=== PATIENT | female | born 1965 | race Hispanic/Latino ===

== ENCOUNTER 2017-07-26 06:59 | Day surgery (SDC) | payer MEDICARE, BC ==
[2017-07-25 13:38] VITALS: BMI 21.7
[2017-07-26 07:56] VITALS: BP 104/68; TEMP 98
[2017-07-26] MEDS ORDERED: FLU VACC QS2017-18 36 mo. & older 0.5 ML SYRINGE IM ONE (09:00)
--- NOTE | 2017-07-26 09:12 | SPC ---
LEFT UPPER EXTREMITY DIALYSIS FISTULOGRAM: Date: 07/26/17 HISTORY: Left arm pain. Patient with history of dialysis fistula. DOSE: 1 minute of fluoroscopy and DAP of 5.4 Gy*cm^2. TECHNIQUE/FINDINGS: The left upper extremity fistula was localized. The overlying skin was prepped and draped in the usua l sterile manner. A 1% lidocaine solution was used to anesthetize the overlying soft tissues. A small dermatotomy was made. The left upper extremity fistula was accessed using a micropuncture set. Left upper extremity fistulogram was performed. The arterial anastomosis is patent with contrast passing from the left radial artery into the left up per extremity fistula without difficulty. The draining portion of the fistula is patent. No significa nt evidence of dialysis fistula occlusive changes seen. The left axillary vein and subclavian veins a re also patent. IMPRESSION: Normally functioning and patent left upper extremity dialysis fistula without evidence of stenosis se en. POS: [facility]
== END 2017-07-26 09:05 | disposition home or self-care (01) ==
LOC: RAD 06:59 → EDSTATUS 07:30 → RAD 09:05
PROVIDERS: ATTEND Internal Medicine Nephrology
DX: M79.602 Pain in left arm (principal); I12.0 Hypertensive chronic kidney disease with stage 5 chronic kidney disease or end stage renal disease; E11.22 Type 2 diabetes mellitus with diabetic chronic kidney disease; N18.6 End stage renal disease; E11.40 Type 2 diabetes mellitus with diabetic neuropathy, unspecified; F41.9 Anxiety disorder, unspecified; Z79.4 Long term (current) use of insulin; Z79.899 Other long term (current) drug therapy; Z88.8 Allergy status to other drugs, medicaments and biological substances; Z99.2 Dependence on renal dialysis; Z98.890 Other specified postprocedural states
CPT/HCPCS: 36901

== ENCOUNTER 2017-08-24 13:55 | Outpatient (CLI) | payer MEDICARE, BC ==
--- NOTE | 2017-08-24 14:41 | RAD ---
PA AND LATERAL CHEST XRAY: DATE: 08/24/17. HISTORY: Screening evaluation for respiratory tuberculosis. COMPARISON: 05/25/16. FINDINGS: Cardiac silhouette and pulmonary vasculature are within normal limits. Minimal linear density is see n at the left lung base also seen on the prior study and may reflect minimal linear scarring. The praful ngs are otherwise clear. Osseous structures appear intact. IMPRESSION: 1. No acute cardiopulmonary process. 2. No radiographic findings to suggest active tuberculosis. POS: [facility]
== END 2017-08-24 13:56 | disposition home or self-care (01) ==
LOC: RAD 13:55
PROVIDERS: ATTEND Internal Medicine Nephrology
DX: Z11.1 Encounter for screening for respiratory tuberculosis (principal)
CPT/HCPCS: 71046

== ENCOUNTER 2017-12-17 10:01 | Inpatient (IN) | payer MEDICARE, BC ==
[2017-12-17] MEDS ORDERED: Nitroglycerin 0.4 MG TAB (25 Tab Bottle) ONE (10:26)
[2017-12-17 10:29] LABS: #Basophils 0.1 thou/uL (0.0-0.2); #Eosinphils 0.1 thou/uL (0.0-0.7); #Lymphocytes 1.7 thou/uL (1.20-3.40); #Monocytes 0.6 thou/uL (0.11-0.59); #Neutrophils 9.3 thou/uL (1.40-6.50); %Basophils 0.4 % (0.0-1.0); %Eosinophils 0.5 % (0.0-10.0); %Lymphocytes 14.7 % (21.0-51.0); %Monocytes 5.1 % (0.0-10.0); %Neutrophils 79.2 % (42.0-75.0); Hemoglobin 14.4 g/dL (12.0-16.0); Mean Corpuscular HGB CONC 31.7 g/dL (32.0-36.0); Mean Corpuscular Hemoglobin 27.9 pg (27.0-31.0); Mean Corpuscular Volume 87.9 fl (81.0-99.0); Mean Platelet Volume 9.1 fL (7.4-10.4); Platelet Count 235 thou/uL (130-400); RBC Distribution Width 15.9 % (11.5-14.5); Red Blood Cell (RBC) Count 5.18 mill/uL (4.20-5.40); White Blood Cell (WBC) Count 11.7 thou/uL (4.8-10.8)
[2017-12-17 10:50] LABS: ALT (SGPT) 21 U/L (8-55); AST (SGOT) 31 U/L (5-34); Albumin 4.7 g/dL (3.5-5.0); Alkaline Phosphatase 175 U/L (40-150); BUN (Urea Nitrogen) 50 mg/dL (9.8-20.1); Bilirubin, Total 0.7 mg/dL (0.2-1.2); Calc. Creatinine Clearance 0 mL/min (70-130); Estimated GFR-MDRD 4; Glucose 272 mg/dL (70-105); Lipase 381 U/L (8-78); Protein, Total 8.7 g/dL (6.0-8.3)
[2017-12-17 10:58] LABS: Carbon Dioxide Greater than 37 mmol/L (22-29); Chloride 70 mmol/L (98-107); Potassium 4.3 mmol/L (3.5-5.1); Sodium 132 mmol/L (136-145); Troponin I 0.401 ng/mL (< 0.028)
[2017-12-17] MEDS ORDERED: Acetaminophen 500 MG TAB ONE (11:05)
[2017-12-17] MEDS ORDERED: Ondansetron ODT 8 MG TAB ONE (11:05)
[2017-12-17 11:12] LABS: pH, Arterial 7.47 (7.35-7.45)
[2017-12-17 11:13] LABS: Actual Bicarbonate (HCO3a) 50.8 mEq/L (22-26); Base Excess (BEa) 23.2 mEq/L (0 (+/-) 2.5); Hemoglobin (Hb) 12.1 g/dL (12.0-16.0); O2 Tension (PaO2) 45.1 mmHg (80.0-100.0)
[2017-12-17 11:14] LABS: Analyzer IN Cardio ER; Calcium, Ionized 2.1 mmol/L (1.12-1.30); Puncture Site RRA
[2017-12-17 11:27] LABS: Calcium Greater than 17.0 mg/dL (7.8-10.44)
[2017-12-17] MEDS ORDERED: cloNIDine 0.1 MG TAB ONE (11:42)
--- NOTE | 2017-12-17 12:10 | CT ---
CT HEAD WITH AND WITHOUT CONTRAST WITH CT ANGIO HEAD POSTCONTRAST: Date: 12/17/17 Multiple axial tomograms obtained through the head without IV enhancement. This is followed by tomogr ams through the head with IV enhancement in the arterial phase following a cerebral angio protocol wi th multiplanar reconstruction and 3D postprocessing. INDICATION: Unsteady gait. Tremors. FINDINGS: CT HEAD WITHOUT CONTRAST: Ventricles have normal size and position. No evidence of intracranial mass or hemorrhage. No evidence of cortical infarct identified. No significant white matter abnormality identified. Sinuses and mast oids are well aerated. There is dense calcification and deformity of the right globe suggesting phthisis bulbi. IMPRESSION: No acute intracranial abnormality. CT ANGIO HEAD: The intracranial internal carotid arteries are patent and symmetric. The anterior cerebral arteries a nd middle cerebral arteries appear normal and symmetric. No evidence of stenosis or occlusion. Basilar artery is patent. The proximal vertebral arteries are symmetric. Posterior cerebral arteries are patent and symmetric. IMPRESSION: Unremarkable CT angio of head. POS: [facility]
[2017-12-17] MEDS ORDERED: Acetaminophen 325 MG TAB PO PRN (13:37)
[2017-12-17] MEDS ORDERED: PROVENTIL INHALER 6.7 G (200 INHALATIONS) INH PRN (13:38)
[2017-12-17] MEDS ORDERED: ISOVUE-370 76%-LOCM 1 ML ONE (14:53)
[2017-12-17 15:22] LABS: CKMB 7.4 ng/mL (0-6.6); Critical Call CKMBM RESULT DECREASING; Critical Call Chem Troponin I RESULT DECREASING; Troponin I 0.401 ng/mL (< 0.028)
--- NOTE | 2017-12-17 17:45 | CON ---
DATE OF CONSULTATION: 12/17/2017 HISTORY OF PRESENT ILLNESS: Ms. Pulido is a 52-year-old female with ESRD and currently on john ntenance hemodialysis and admitted for ataxia as well as labile hypertension. We are now being consu lted for emergent hemodialysis. She was noted to have an elevated calcium at the same time. REVIEW OF SYSTEMS: Notes occasional chest pain, occasional headaches. Occasional neck pain, ? of at axia. No nausea, no vomiting, no diarrhea. Decreased visual acuity. No sore throat, no fever, chil ls or productive cough, no shortness of breath, no abdominal pain. Appetite and energy level is fair . Occasional joint pains. No hematochezia, no melena, no hematemesis. CURRENT MEDICATIONS: Include Levemir 85 units subq twice a day?, Lantus 5 units subq 3 times a day, albuterol 2 puffs q.6 hours p.r.n., amitriptyline 50 mg at bedtime, amlodipine 5 mg at bedtime, atorv astatin 10 mg tab at bedtime, Catapres 0.3 mg p.o. t.i.d., Lovenox 70 mg subq q.12 hours, folic acid 1 mg every day, Renvela 800 mg p.o. t.i.d. PAST MEDICAL HISTORY: ESRD secondary to diabetic nephropathy, on maintenance hemodialysis. Ehsan ding hypertension, diabetic neuropathy, anxiety, hypertension, history of noncompliance. PAST SURGICAL HISTORY: Status post AV fistula placement, status post PD catheter placement and subse quent removal, status post cuffed dialysis catheter placement. FAMILY HISTORY: No family history of ESRD. SOCIAL HISTORY: Patient lives in [place], but used to live in [place], [place]. She has three chil dren. Currently not working. Status post multiple blood transfusions. No history of smoking, no al cohol intake, no drug abuse. ALLERGIES: None. TRAUMA: None. IMMUNIZATIONS: Up to date. HOSPITALIZATIONS: Please see past medical history. ALLERGIES: No known drug allergies. TRAUMA: None. PHYSICAL EXAMINATION: VITAL SIGNS: Blood pressure is noted at 120/70, heart rate 70. GENERAL: Awake, alert, comfortable, not in overt distress. SKIN: Adequate turgor. HEENT: Pinkish conjunctivae, anicteric sclerae. Decreased visual acuity. NECK: No neck mass, no carotid bruits, no JVD. LUNGS: Clear breath sounds, no wheezing, no crackles. HEART: Normal sinus rhythm. No murmur, no gallops or rubs. ABDOMEN: Globular, soft, nontender, no masses. EXTREMITIES: No edema. X-RAY FINDINGS: CT angio of [place] has negative findings. LABORATORY DATA: The following: White count 11.7, hemoglobin 14.4. Sodium 132, potassium 4.3, chlo ride 70, carbon dioxide 37, BUN 50, creatinine 10.81, glucose 272, calcium repeated as 17. ASSESSMENT AND PLAN: 1. End-stage renal disease, stable. We will continue current hemodialysis regimen of Sunday, , Sunday. Fluid removal only as tolerated. Review of the last Kt/V suggests she is adequately di alyzed. 2. Hypercalcemia -- Calcium was noted to be at 17. The plan is for her to undergo emergent hemodial ysis. If calcium is still significantly elevated by the following morning, we will do another dialyt ic intervention with this patient. Please note that the patient's vitamin D will be discontinued. I n addition, we will discontinue her IV Hectorol. This hypercalcemia may be iatrogenic or drug induce d. If not, we will do further workup with this patient. 2. Hypercalcemia -- this could be a lab er ror versus true hypercalcemia. The patient is currently undergoing hemodialysis. We will repeat lab work in a.m. 3. Labile hypertension. Continue current blood pressure medications. 4. Ataxia -- negative. Negative CT scan findings.
[2017-12-17] MEDS: Sevelamer Carbonate 800 MG TAB PO SCH (17:48)
[2017-12-17] MEDS: cloNIDine 0.3 MG TAB PO SCH ×2 (17:48→20:50)
[2017-12-17 18:09] VITALS: BMI 28.4
[2017-12-17] MEDS ORDERED: Dextrose 5% in Water 1,000 ML IV PRN (18:30)
[2017-12-17] MEDS ORDERED: Dextrose 50% Abboject 50 ML SYRINGE SLOW IVP PRN (18:30)
[2017-12-17] MEDS ORDERED: Nitroglycerin 0.4 MG TAB (25 Tab Bottle) PO PRN (18:32)
--- NOTE | 2017-12-17 18:38 | CON ---
DATE OF CONSULTATION: 12/17/2017 REASON FOR CONSULTATION: Chest pain, elevated troponin. HISTORY OF PRESENT ILLNESS: Ms. Pulido is a 52-year-old with a history of end-stage renal disease who was seen and evaluated by Dr. Alexey White in the past. She underwent coronary angiography in 2016 and was not found to have significant coronary artery disease. At that time, was performed due to elevat ed troponin. She recently presented with the dizziness and lightheadedness, that is her current main complaint. S he has undergone emergent dialysis due to a calcium level. There was too high to detect. She does complain of chest pain, but also complains of headaches, back pain and leg pain. She appear s to have multiple complaints noted after dialysis. Her troponin was elevated at 0.4. She has had p revious elevated troponins of 0.1. Her CK-MB is also trending down. PAST MEDICAL HISTORY: End-stage renal disease, issues with compliance, diabetes mellitus, hypertensi on, hyperlipidemia, gastroparesis, diabetic retinopathy, hernia repair, BTL, right eye surgery, C-sec tion, endometrial biopsy. SOCIAL HISTORY: No current tobacco or alcohol use. ALLERGIES: ASPIRIN, PENICILLIN, SULFA, AND HEPARIN. REVIEW OF SYSTEMS: Ten-point review of systems is reviewed and as above, otherwise negative. PHYSICAL EXAMINATION: VITAL SIGNS: Blood pressure 120/69, pulse 95, temperature 96.5. GENERAL: Patient is a pleasant female who is in no acute distress. She does appear older than stated age. NEUROLOGIC: The patient is alert and oriented times 3 with no focal neurologic deficits. HEENT: Sclerae without icterus. Mouth has moist mucous membranes with normal pallor. NECK: No JVD. Carotid upstroke brisk. No bruits bilaterally. LUNGS: Clear to auscultation with unlabored respirations. BACK: No scoliosis or kyphosis. CARDIAC: Regular rate and rhythm with normal S1 and S2. No S3 or S4 noted. No significant rubs, murmurs, thrills, or gallops noted throughout the precordium. PMI is not displa wilfred. There is no parasternal heave. ABDOMEN: Soft, nontender, nondistended. No peritoneal signs present. No hepatosplenomegaly. No abnormal striae. EXTREMITIES: A 2+ femoral and 2+ dorsalis pedis pulses. No cyanosis, clubbing, or edema. SKIN: No gross abnormalities. PERTINENT LABS: Sodium 132, potassium 4.3, chloride of 70, CO2 greater than 37, BUN 50, creatinine 1 0.8, glucose 272, calcium greater than 17, CK-MB of 8 down trending to 7.4. Peak troponin 0.4. BNP of 1241. EKG shows left bundle-branch block, chronic. IMPRESSION: 1. Atypical chest pain. 2. Hypercalcemia. 3. Hyponatremia. 4. Elevated BNP. 5. End-stage renal disease. RECOMMENDATIONS: At this point, Ms. Pulido appears stable. Her CK-MB is down trending. She has under gone emergent dialysis. She appears comfortable. At this point, I recommend close observation. May consider noninvasive stress study given angiography in 2014 that was negative for significant diseas e. We will continue to rule out by CK's and troponins. We will also recheck her calcium level in a. m. and proceed with dialysis if still elevated. We will leave at the discretion of Dr. Zachery Auguste .
[2017-12-17 18:46] LABS: Troponin I 0.447 ng/mL (< 0.028)
[2017-12-17] MEDS ORDERED: Fioricet 325/50/40 mg Tablet PO PRN (18:52)
[2017-12-17] MEDS ORDERED: traMADol HCl 50 MG TAB PO PRN (18:53)
[2017-12-17 19:04] LABS: Anion Gap 15 mmol/L (10-20); BUN (Urea Nitrogen) 12 mg/dL (9.8-20.1); Calc. Creatinine Clearance 16 mL/min (70-130); Calcium 13.6 mg/dL (7.8-10.44); Carbon Dioxide 31 mmol/L (22-29); Chloride 92 mmol/L (98-107); Estimated GFR-MDRD 10; Glucose 210 mg/dL (70-105); Potassium 3.7 mmol/L (3.5-5.1); Sodium 134 mmol/L (136-145)
[2017-12-17] MEDS: Insulin Glargine 10 UNITS in Pre-Filled Syringe 1 EACH SC SCH (20:46)
[2017-12-17] MEDS: Atorvastatin Calcium 10 MG TAB PO SCH (20:47)
[2017-12-17] MEDS: Enoxaparin Sodium 80 MG/0.8 ML SYRINGE SC SCH (20:47)
[2017-12-17] MEDS: Amitriptyline HCl 25 MG TAB PO SCH (20:47)
[2017-12-18 05:23] LABS: #Eosinphils 0.2 thou/uL (0.0-0.7); #Lymphocytes 1.9 thou/uL (1.20-3.40); #Monocytes 0.5 thou/uL (0.11-0.59); #Neutrophils 5.8 thou/uL (1.40-6.50); %Basophils 0.6 % (0.0-1.0); %Eosinophils 2.3 % (0.0-10.0); %Lymphocytes 22.5 % (21.0-51.0); %Monocytes 5.7 % (0.0-10.0); Hemoglobin 12.9 g/dL (12.0-16.0); Mean Corpuscular HGB CONC 31.4 g/dL (32.0-36.0); Mean Corpuscular Hemoglobin 28.8 pg (27.0-31.0); Mean Corpuscular Volume 91.8 fl (81.0-99.0); Mean Platelet Volume 9.4 fL (7.4-10.4); Platelet Count 178 thou/uL (130-400); RBC Distribution Width 15.9 % (11.5-14.5); Red Blood Cell (RBC) Count 4.46 mill/uL (4.20-5.40); White Blood Cell (WBC) Count 8.4 thou/uL (4.8-10.8)
[2017-12-18 05:29] LABS: Anion Gap 10 mmol/L (10-20); BUN (Urea Nitrogen) 22 mg/dL (9.8-20.1); Calc. Creatinine Clearance 12 mL/min (70-130); Carbon Dioxide 36 mmol/L (22-29); Cardiac Risk 3.8 (Less than 4.5); Chloride 93 mmol/L (98-107); Cholesterol 170 mg/dl (< 200 Desired); Estimated GFR-MDRD 7; Glucose 186 mg/dL (70-105); HDL Cholesterol 45 mg/dL (>60 Neg Risk); LDL Cholesterol, Calculated 92 mg/dL; Potassium 4.3 mmol/L (3.5-5.1); Sodium 135 mmol/L (136-145); Triglycerides 167 mg/dL (Less than 150)
[2017-12-18 05:32] LABS: Calcium 13.9 mg/dL (7.8-10.44)
[2017-12-18 07:39] LABS: HBSAg Index 0.25 S/CO (0-0.99); Hep B Surf Ag Non-Reactive S/CO (NonReactive)
[2017-12-18] MEDS: Enoxaparin Sodium 80 MG/0.8 ML SYRINGE SC SCH (08:17)
[2017-12-18] MEDS: Insulin Glargine 8 UNITS in Pre-Filled Syringe 1 EACH SC SCH (08:17)
[2017-12-18] MEDS: Sevelamer Carbonate 800 MG TAB PO SCH ×3 (08:17→16:02)
--- NOTE | 2017-12-18 09:02 | PRG ---
DATE OF SERVICE: 12/18/2017 SERVICE: Renal Medicine. SUBJECTIVE: Ms. Pulido is a 52-year-old female with ESRD. She was admitted for chest pain. She was also noted to be hypercalcemic yesterday. She underwent emergent hemodialysis. Serum calciu m is now improved. Due to the still slightly elevated calcium, I will do a 2-hour hemodialysis with this patient using a 2-0 calcium bath. No other complaints. She is also due for cardiac catheteriza tion at noon time. She voices no new complaints, no chest pain or shortness of breath. PHYSICAL EXAMINATION: VITAL SIGNS: Blood pressure 117/64, heart rate 72, respiratory rate 16, temperature 98. GENERAL: Noted to be awake, alert, comfortable, not in distress. SKIN: Adequate turgor. HEENT: She has pinkish conjunctivae, anicteric sclerae. NECK: No neck mass, no carotid bruits, no JVD. CHEST: No deformities. LUNGS: Clear breath sounds. HEART: Normal sinus rhythm. No murmur, no gallops, no rubs. ABDOMEN: Globular, soft, nontender, no masses. EXTREMITIES: No edema, no deformities. MEDICATIONS: Of 12/18/2017 was reviewed. LABORATORY DATA: Of 12/18/2017 shows sodium 135, potassium 4.3, chloride 93, carbon dioxide 26, BUN 22, creatinine 6.03, glucose 186, calcium is 13.9, cholesterol is 170. ASSESSMENT AND PLAN: 1. Hypercalcemia - we will do a 2-hour hemodialysis with this patient using a 2-0 calcium bath 2. End-stage renal disease, stable. Continue hemodialysis regimen. We will resume back on Sunday, Sunday, Sunday dialysis tomorrow. Fluid removal as tolerated. She is receiving extra dialysis du e to the hypercalcemia. 3. Chest pain - Cardiology has been consulted. Planned cardiac catheterization will be done today. Recheck base met in a.m.
--- NOTE | 2017-12-18 10:06 | HP ---
HISTORY OF PRESENT ILLNESS: The patient is a 52-year-old female who presented to the hospital with c omplaints of chest pain, headache, and ataxia. The patient stated that she had pain. Her headache s tarted about a couple of days ago; however, today it increased in intensity. She also had some upper back pain and thus she started having some chest pain and felt like as chest tightness. She present ed to the ER for further evaluation. In the ER, she underwent a CTA, which did not show any acute ab normalities. She was found to be hypertensive. Blood pressure was in the 220/87. Patient stated th at she was a little nauseated today, did have some emesis x1. Denies any diarrhea. Currently, florinda gilmore is in dialysis. States that she does have some mild chest pressure. However, the pain has improv ed with nitroglycerin; however, she does complain of headache and she describes as headache as a pres sure-like sensation all over her head. Denies any blurry vision; however, patient states that she do es have some decreased vision in both her eyes, which is not new. PAST MEDICAL HISTORY: End-stage renal disease on dialysis, hypertension, anemia of chronic disease, and diabetes. PAST SURGICAL HISTORY: She has an AV fistula. SOCIAL HISTORY: She denies any smoking, alcohol or drug use. FAMILY HISTORY: Parents are positive for hypertension. MEDICATIONS: Are as the following as per documentation. She is on clonidine 0.3 mg t.i.d., Renvela 1 tab p.o. t.i.d., pravastatin 40 mg at bedtime, Protonix 40 mg daily, folic acid 1 mg daily, escital opram 10 mg daily, Norvasc 5 mg daily, amitriptyline 50 mg at bedtime, insulin 25 units b.i.d., and h ydrocodone 1 tab p.o. q.6 hours p.r.n. REVIEW OF SYSTEMS: All negative except for the ones mentioned above in the HPI. PHYSICAL EXAMINATION: VITAL SIGNS: Her temperature is 98.3, heart rate of 75, blood pressure 101/58, 18, 95% on room air. GENERAL: She is awake, alert, and oriented x3, does not appear in any distress. HEENT: She does not have any teeth. CARDIOVASCULAR: S1, S2 present. No murmurs, rubs or gallops. LUNGS: Clear to auscultation. Rhonchi or wheezes noted. ABDOMEN: Soft and nontender. Bowel sounds are present x2. She does have some mild pain upon palpat ing her epigastric area. EXTREMITIES: She has got no edema. NEUROLOGIC: No focal deficits noted. SKIN: She does have a fistula in her left upper extremity. LABORATORY DATA: As the following: WBCs of initially when she came in was 11.7, hemoglobin of 14.4, hematocrit of 45.5, platelets of 235. Chemistry indicates sodium of 135, potassium of 3.7. Her stef cium was 13.6. Her glucose was 210. Troponins were elevated at 0.4. ASSESSMENT AND PLAN: The patient is a 52-year-old female who presents to the hospital with complaint s of headaches, chest pain and ataxia. 1. Chest pain, possible NSTEMI. The patient does have some chest pain and elevated troponins. We w ill get Cardiology to evaluate the patient. We will put the patient on subcu Lovenox twice a day and also nitro p.r.n. 2. Hypercalcemia. The patient is on end-stage renal disease on dialysis. The patient is to undergo dialysis. 3. Hypertension emergency, that could be causing patient's ataxia. CTA is negative for any acute st roke. The patient states that she has been compliant with her medications and she has not missed any medication. Upon speaking with the dialysis nurse, she also states that the patient is very sensiti ve to dialysis and on starting dialysis patient. Blood pressure continued to drop. Patient states t hat she does not miss her dialysis and normally gets dialysis Sunday, Sunday, and Sunday. 4. Diabetes. We will start the patient on sliding scale insulin and also her home dose of Lantus. 5. Deep venous thrombosis prophylaxis. Patient is already on Lovenox.
[2017-12-18] MEDS ORDERED: Communication Order-Pharmacy FS SCH (11:30)
--- NOTE | 2017-12-18 11:45 | PRG ---
Ms. Pulido peak troponin was 0.4. She states she is feeling better today. Her calcium has decreased t o 13. Given her troponin of 0.4, which is felt to be positive for ischemia and symptoms of chest pressure, we would recommend coronary angiography with possible PCI. I discussed the procedure in full detail with Ms. Pulido. The risks of the procedure were also discussed. The risks of the procedure include b ut are not limited to the following: , stroke, LA, need for emergency surgery, loss of limb, bl eeding, and infection, as well as a reaction to the dye causing kidney failure and needing long-term dialysis. I also discussed the risks of PCI to include all of the above including coronary dissectio n and perforation in addition to acute stent thrombosis and restenosis. All questions about the proc edure were answered. Given the above, the patient agreed to proceed with coronary angiography and po ssible PCI. All questions were answered. She would prefer a bare metal stent if needed. Her last a ngiogram was performed 4 years ago. Given her risk factors and dialysis, I would recommend reassessi ng her anatomy. She agreed.
[2017-12-18] MEDS ORDERED: Midazolam HCl 2 mg/2 ml Vial ONE (11:56)
[2017-12-18] MEDS ORDERED: Fentanyl 100 MCG/2 ML VIAL ONE (11:56)
[2017-12-18] MEDS ORDERED: Lidocaine 1% (PF) 30 ML VIAL ONE (11:58)
[2017-12-18] MEDS: cloNIDine 0.3 MG TAB PO SCH ×3 (12:32→20:54)
[2017-12-18] MEDS: Amlodipine 5 MG TAB PO SCH (12:32)
[2017-12-18] MEDS: Escitalopram Oxalate 10 mg Tablet PO SCH (12:32)
[2017-12-18] MEDS: Folic Acid 1 MG TAB PO SCH (12:32)
[2017-12-18] MEDS ORDERED: Acetaminophen/Codeine 30-300mg Tablet PO PRN (13:39)
[2017-12-18] MEDS ORDERED: traMADol HCl 50 MG TAB PO PRN (13:39)
[2017-12-18] MEDS ORDERED: Nitroglycerin 0.4 MG TAB (25 Tab Bottle) SL PRN (13:39)
[2017-12-18] MEDS ORDERED: Sodium Chloride 0.9% 200 ML IV SCH (13:45)
[2017-12-18] MEDS: Atorvastatin Calcium 10 MG TAB PO SCH (20:55)
[2017-12-18] MEDS: Amitriptyline HCl 25 MG TAB PO SCH (20:55)
[2017-12-18] MEDS: HumaLOG 300 UNITS/3 ML VIAL SC PRN (20:56)
[2017-12-18] MEDS: Insulin Glargine 10 UNITS in Pre-Filled Syringe 1 EACH SC SCH (20:56)
[2017-12-18] MEDS ORDERED: Enoxaparin Sodium 80 MG/0.8 ML SYRINGE SC SCH (21:00)
--- NOTE | 2017-12-18 22:52 | PDOC.PN ---
- Subjective Encounter Start Date: 12/18/17 Encounter Start Time: 09:30 Subjective: pt up in bed no complains - Objective Resuscitation Status: Resuscitation Status FULL:Full Resuscitation Vital Signs & Weight: Vital Signs (12 hours) Temp Pulse Resp BP BP Pulse Ox 12/18/17 20:54 156/69 H 12/18/17 16:16 98.7 F 82 16 156/69 H 95 12/18/17 15:58 156/69 H 12/18/17 13:57 75 16 12/18/17 13:36 98.9 F 75 16 123/65 12/18/17 10:59 98.5 F 75 20 95 Weight Weight 150 lb 11.2 oz Result Diagrams: 12/18/17 04:24 12/18/17 04:24 Additional Labs: Accuchecks 12/18/17 12/18/17 12/18/17 16:05 11:32 06:04 POC Glucose 229 H 152 H 160 H 12/18/17 05:09 POC Glucose 180 H Phys Exam - Physical Examination HEENT: PERRLA, moist MMs, sclera anicteric, TM's clear, oral pharynx no lesions , 2+ tonsils Neck: no nodes, no JVD, supple, full ROM Respiratory: no wheezing, no rales, no rhonchi, wheezing present, clear to auscultation bilateral Cardiovascular: RRR, no significant murmur, no rub, gallop, irregular Gastrointestinal: soft, non-tender, no distention, positive bowel sounds Dx/Plan - Plan * 1) NSTEMI * 2) hypertensive emergency * 3) hypercalcemia * 4) ESRD * * plan: pt on lovonox has some chest pain. pt going for cardiac cath today. pt' s bp responed after dialysis. she states that she is complinat with her meds at home and does not miss her dialysis either. will check PtH level. Review of Systems - Review of Systems ENT: negative: Ear Pain, Ear Discharge, Nose Pain, Nose Discharge, Nose Congestion, Mouth Pain, Mouth Swelling, Throat Pain, Throat Swelling, Other Respiratory: negative: Cough, Dry, Shortness of Breath, Hemoptysis, SOB with Excertion, Pleuritic Pain, Sputum, Wheezing Cardiovascular: chest pain Gastrointestinal: negative: Nausea, Vomiting, Abdominal Pain, Diarrhea, Constipation, Melena, Hematochezia, Other Musculoskeletal: negative: Neck Pain, Shoulder Pain, Arm Pain, Back Pain, Hand Pain, Leg Pain, Foot Pain, Other - Medications/Allergies Allergies/Adverse Reactions: Allergies Allergy/AdvReac Type Severity Reaction Status Date / Time aspirin AdvReac Intermediate CAUSES Verified 02/14/16 11:58 BLEEDING IN EYE Medications: Current Medications Acetaminophen (Tylenol) 650 mg PO Q4H PRN PRN Reason: Headache/Fever or Pain Acetaminophen/Butalbital/Caffeine (Fioricet) 1 tab PO Q8H PRN PRN Reason: Headache Stop: 12/22/17 18:53 Acetaminophen/Codeine Phosphate (Tylenol #3) 1 tab PO Q4H PRN PRN Reason: Mild Pain (1-3) Acetaminophen/Codeine Phosphate (Tylenol #3) 2 tab PO Q4H PRN PRN Reason: Moderate Pain (4-6) Albuterol Sulfate (Proventil Hfa) 2 puff INH Q6HR PRN PRN Reason: SOB &/or Wheezing Amitriptyline HCl (Elavil) 50 mg PO [facility] Last Admin: 12/18/17 20:55 Dose: 50 mg Amlodipine Besylate (Norvasc) 5 mg PO DAILY [facility] Last Admin: 12/18/17 12:32 Dose: Not Given Atorvastatin Calcium (Lipitor) 10 mg PO [facility] Last Admin: 12/18/17 20:55 Dose: 10 mg Clonidine (Catapres) 0.3 mg PO TID [facility] Last Admin: 12/18/17 20:54 Dose: Not Given Dextrose/Water (Dextrose 50%) 25 gm SLOW IVP PRN PRN PRN Reason: Hypoglycemia Escitalopram Oxalate (Lexapro) 10 mg PO DAILY [facility] Last Admin: 12/18/17 12:32 Dose: Not Given Folic Acid (Folvite) 1 mg PO DAILY [facility] Last Admin: 12/18/17 12:32 Dose: Not Given Glucagon (Glucagon) 1 mg IM PRN PRN PRN Reason: Hypoglycemia Dextrose/Water (D5w) 1,000 mls @ 0 mls/hr IV .Q0M PRN; As Directed PRN Reason: Hypoglycemia Insulin Glargine 10 units/ (Miscellaneous Medication) 0.1 mls @ 0 mls/hr SC [facility] Last Admin: 12/18/17 20:56 Dose: 0.1 mls Insulin Glargine 8 units/ (Miscellaneous Medication) 0.08 mls @ 0 mls/hr SC QAM [facility] Last Admin: 12/18/17 08:17 Dose: Not Given Insulin Human Lispro (Humalog) 0 units SC .MILD SLIDING SCALE PRN PRN Reason: Mild Correctional Scale Last Admin: 12/18/17 20:56 Dose: 6 unit Nitroglycerin (Nitrostat) 0.4 mg SL Q5MIN PRN PRN Reason: Chest Pain Pantoprazole Sodium (Protonix) 40 mg PO DAILY [facility] Last Admin: 12/18/17 12:32 Dose: Not Given Sevelamer Carbonate (Renvela) 800 mg PO TID-WM [facility] Last Admin: 12/18/17 16:02 Dose: 800 mg Sodium Chloride (Flush - Normal Saline) 10 ml IVF Q12HR [facility] Last Admin: 12/18/17 20:58 Dose: 10 ml Sodium Chloride (Flush - Normal Saline) 10 ml IVF PRN PRN PRN Reason: Saline Flush Tramadol HCl (Ultram) 50 mg PO Q6H PRN PRN Reason: Moderate Pain (4-6)
[2017-12-19 06:20] LABS: Anion Gap 16 mmol/L (10-20); BUN (Urea Nitrogen) 23 mg/dL (9.8-20.1); Calc. Creatinine Clearance 12 mL/min (70-130); Calcium 11.8 mg/dL (7.8-10.44); Carbon Dioxide 24 mmol/L (22-29); Chloride 95 mmol/L (98-107); Estimated GFR-MDRD 8; Glucose 101 mg/dL (70-105); Potassium 4.3 mmol/L (3.5-5.1); Sodium 131 mmol/L (136-145)
--- NOTE | 2017-12-19 08:09 | PDOC.PN ---
- Subjective Encounter Start Date: 12/19/17 Encounter Start Time: 08:08 Subjective: SALES, feels cold all over, burning in stomach - Objective Resuscitation Status: Resuscitation Status FULL:Full Resuscitation MAR Reviewed: Yes Vital Signs & Weight: Vital Signs (12 hours) Temp Pulse Resp BP BP Pulse Ox 12/18/17 23:25 98.8 F 80 16 106/56 L 95 12/18/17 20:54 156/69 H 12/18/17 20:20 98.3 F 68 20 100/51 L 93 L Weight Weight 150 lb 11.2 oz I&O: 12/18/17 12/19/17 12/20/17 06:59 06:59 06:59 Intake Total 320 Output Total 0 Balance 320 Result Diagrams: 12/18/17 04:24 12/19/17 04:53 Additional Labs: Accuchecks 12/19/17 12/18/17 12/18/17 06:06 20:13 16:05 POC Glucose 131 H 497 H 229 H 12/18/17 12/18/17 11:32 06:04 POC Glucose 152 H 160 H Phys Exam - Physical Examination Neck: no JVD Respiratory: clear to auscultation bilateral Cardiovascular: RRR, no significant murmur Gastrointestinal: soft, non-tender, positive bowel sounds Musculoskeletal: no edema Dx/Plan (1) Chest pain Code(s): R07.9 - CHEST PAIN, UNSPECIFIED Status: Acute Qualifiers: Chest pain type: other chest pain Qualified Code(s): R07.89 - Other chest pain; R07.8 - Other chest pain (2) NSTEMI (non-ST elevated myocardial infarction) Code(s): I21.4 - NON-ST ELEVATION (NSTEMI) MYOCARDIAL INFARCTION Status: Acute (3) DM2 (diabetes mellitus, type 2) Status: Chronic Qualifiers: Diabetes mellitus detention insulin use: with varitypist use Chronic kidney disease stage: on chronic dialysis (4) ESRD (end stage renal disease) on dialysis Code(s): N18.6 - END STAGE RENAL DISEASE; Z99.2 - DEPENDENCE ON RENAL DIALYSIS Status: Chronic (5) Hypertension Code(s): I10 - ESSENTIAL (PRIMARY) HYPERTENSION Status: Chronic Qualifiers: Hypertension type: essential hypertension Qualified Code(s): I10 - Essential (primary) hypertension (6) Secondary hyperparathyroidism of renal origin Code(s): N25.81 - SECONDARY HYPERPARATHYROIDISM OF RENAL ORIGIN Status: Chronic - Plan cont HD -: abd US -: TFTs -: discuss with cardiology * .
--- NOTE | 2017-12-19 09:08 | PRG ---
DATE OF SERVICE: 12/19/2017 SUBJECTIVE: Ms. Pulido is a 52-year-old female with ESRD and being followed up for her maintenance hemodialysis. She is at the dialysis unit today and I am supervising her at the bedside. Yesterday she underwent a cardiac catheterization. No significant lesion was found except recommendation for medical management of her coronary artery disease. She was also found to be hypercalcemic on admission. She received emergent dialysis as well as extra dialysis yesterday for 2 hours. Her serum calcium is much improved from 17 to a most recent value of about 11 today. No other complaints, no chest pain or shortness of breath. I am at the bedside supervising her hemodialysis. PHYSICAL EXAMINATION: VITAL SIGNS: Blood pressure 106/56, heart rate 80, respiratory rate 16, temperature 98.8, pulse ox 95%. GENERAL: Awake, alert, comfortable, not in distress. SKIN: Adequate turgor. HEENT: She has pinkish conjunctivae, anicteric sclerae. NECK: No neck mass, no carotid bruits, no JVD. CHEST: No deformities. LUNGS: Clear breath sounds. HEART: Normal sinus rhythm. No murmur, no gallops, no rubs. ABDOMEN: Globular, soft, nontender, no masses. EXTREMITIES: No edema, no deformities. MEDICATIONS: 12/19/2017 - Reviewed. LABORATORY DATA: 12/19/2017 - Sodium 131, potassium 4.3, chloride 95, carbon dioxide 24, BUN 23, creatinine 5.75, calcium 11.8. 12/18/2017 - Calcium was 13.9. ASSESSMENT AND PLAN: 1. Hypercalcemia, much improved with dialysis. We will continue to hold off any vitamin D analog with this patient for the moment. 2. End-stage renal disease, stable. We will continue current maintenance hemodialysis. This morning she requested to shorten her treatment. We will dialyze this patient for 3-1/2 hours instead of 4 hours. 3. Chest pain, resolved - status post cardiac catheterization. Cardiology is following. I agree with current management. ADDENDUM: She is doing well with the current dialysis regimen, no changes to be made with her Sunday, Sunday, Sunday schedule. [facility]
[2017-12-19] MEDS: cloNIDine 0.3 MG TAB PO SCH ×3 (13:12→20:58)
[2017-12-19] MEDS: Sevelamer Carbonate 800 MG TAB PO SCH ×3 (13:12→18:29)
[2017-12-19] MEDS: Amlodipine 5 MG TAB PO SCH (13:13)
[2017-12-19] MEDS: Folic Acid 1 MG TAB PO SCH (13:13)
[2017-12-19] MEDS: Escitalopram Oxalate 10 mg Tablet PO SCH (13:13)
[2017-12-19] MEDS: Insulin Glargine 8 UNITS in Pre-Filled Syringe 1 EACH SC SCH (13:13)
[2017-12-19] MEDS: HumaLOG 300 UNITS/3 ML VIAL SC PRN ×2 (16:35→17:45)
[2017-12-19 17:08] LABS: T4 9.7 ug/dL (4.87-11.72)
[2017-12-19] MEDS: Amitriptyline HCl 25 MG TAB PO SCH (20:58)
[2017-12-19] MEDS: Atorvastatin Calcium 10 MG TAB PO SCH (20:58)
[2017-12-19] MEDS ORDERED: Insulin Glargine 25 UNITS in Pre-Filled Syringe 1 EACH SC SCH (21:00)
[2017-12-19] MEDS ORDERED: Non-Formulary Item 1 EACH (Insulin Glargine,Hum.Rec.Anlog [Lantus Solostar] 25 UNIT) SQ SCH (21:00)
[2017-12-19] MEDS: Acetaminophen/Codeine 30-300mg Tablet PO PRN (21:14)
--- NOTE | 2017-12-20 07:38 | ULT ---
SONOGRAM ABDOMEN COMPLETE: HISTORY: Upper abdomen pain. FINDINGS: Gallbladder has a normal appearance without evidence of stones. The common duct is 0.7 cm, upper hoyos its of normal. Liver is unremarkable without focal mass or intrahepatic biliary dilatation. No free fluid. The spleen is unremarkable. Renal cortices are atrophied. The abdominal aorta, IVC, and [place] are mostly obscured by bowel gas. IMPRESSION: 1. Diffuse renal atrophy. No evidence of urinary tract obstruction. 2. No evidence of gallstones or biliary obstruction. POS: [facility]
--- NOTE | 2017-12-20 08:29 | PRG ---
DATE OF SERVICE: 12/20/2017 SUBJECTIVE: Ms. Pulido is a 52-year-old female with ESRD and followed by the [facility] fo r her maintenance hemodialysis. No new complaints today. She complained of some abdominal discomfor t yesterday and an ultrasound of the abdomen was done on 12/20/2017. The results showed no evidence of gallstones or biliary obstruction. This morning she denies any chest pain or shortness of breath. PHYSICAL EXAMINATION: VITAL SIGNS: Blood pressure 133/65, heart rate 68, respiratory rate 14, temperature 97.5, pulse ox 9 6%. GENERAL: Awake, alert, comfortable, not in distress. SKIN: Adequate turgor. HEENT: She has pinkish conjunctivae, anicteric sclerae. NECK: No neck mass, no carotid bruits, no JVD. CHEST: No deformities. LUNGS: Clear breath sounds. No wheezing, no crackles. HEART: Normal sinus rhythm. No murmur, no gallops or rubs. ABDOMEN: Globular, soft, nontender, no masses. EXTREMITIES: No edema, no deformities. MEDICATIONS: 12/20/2017 - Reviewed. LABORATORY: 12/18/2017 - White count 8.4, hemoglobin 12.9. 12/20/2017 - Glucose 128. 12/19/2017 - Sodium 131, potassium 4.3, chloride 95, carbon dioxide 24, BUN 23, creatinine 5.75, calc ium is 11.8. ASSESSMENT AND PLAN: 1. Hypercalcemia, much improved. We will plan to use a 2-0 calcium bath once she is in the outpatie nt setting. We will hold off any vitamin D analogs, Hectorol. If needed, we can always restart this patient on Sensipar. We will recheck PTH in the outpatient setting. Please note the PTH on 018 was noted at 69. For that reason, we could not restart her on Sensipar. 2. End-stage renal disease, stable. Continue current Sunday, Sunday, Sunday hemodialysis. Maria Ines seymour note the patient shortened her dialysis treatment yesterday to 3 hours. 3. Hypertension, excellent control. Continue current blood pressure meds. Recheck base met and CBC in a.m. if the patient is still here.
[2017-12-20] MEDS: Sevelamer Carbonate 800 MG TAB PO SCH ×3 (08:52→17:36)
[2017-12-20] MEDS: cloNIDine 0.3 MG TAB PO SCH ×2 (08:53→14:13)
[2017-12-20] MEDS: Folic Acid 1 MG TAB PO SCH (08:55)
[2017-12-20] MEDS: Amlodipine 5 MG TAB PO SCH (08:55)
[2017-12-20] MEDS: Escitalopram Oxalate 10 mg Tablet PO SCH (08:56)
--- NOTE | 2017-12-20 09:09 | PDOC.PN ---
- Subjective Encounter Start Date: 12/20/17 Encounter Start Time: 09:08 Subjective: no specific complaints today - Objective Resuscitation Status: Resuscitation Status FULL:Full Resuscitation MAR Reviewed: Yes Vital Signs & Weight: Vital Signs (12 hours) Temp Pulse Resp BP BP Pulse Ox 12/20/17 08:55 75 12/20/17 08:53 121/67 12/20/17 08:00 98.2 F 75 13 121/67 95 12/20/17 03:17 97 12/20/17 03:13 97.5 F L 68 14 133/65 96 12/19/17 23:54 98.1 F 80 16 95/57 L 100 Weight Weight 150 lb 11.2 oz I&O: 12/19/17 12/20/17 12/21/17 06:59 06:59 06:59 Intake Total 320 Output Total 0 Balance 320 Result Diagrams: 12/18/17 04:24 12/19/17 04:53 Additional Labs: Accuchecks 12/20/17 12/20/17 12/20/17 05:59 01:47 00:48 POC Glucose 128 H 123 H 170 H 12/19/17 12/19/17 12/19/17 20:59 20:32 19:47 POC Glucose 135 H 120 H 151 H 12/19/17 12/19/17 12/19/17 18:16 17:32 16:23 POC Glucose 403 H Greater than 550 H* Greater than 550 H* 12/19/17 11:08 POC Glucose 213 H Phys Exam - Physical Examination Neck: no JVD Respiratory: clear to auscultation bilateral Cardiovascular: RRR, no significant murmur Gastrointestinal: soft, positive bowel sounds Musculoskeletal: no edema Dx/Plan (1) Chest pain Code(s): R07.9 - CHEST PAIN, UNSPECIFIED Status: Acute Qualifiers: Chest pain type: other chest pain Qualified Code(s): R07.89 - Other chest pain; R07.8 - Other chest pain (2) NSTEMI (non-ST elevated myocardial infarction) Code(s): I21.4 - NON-ST ELEVATION (NSTEMI) MYOCARDIAL INFARCTION Status: Acute (3) DM2 (diabetes mellitus, type 2) Status: Chronic Qualifiers: Diabetes mellitus termite treater helper insulin use: with fci use Chronic kidney disease stage: on chronic dialysis (4) ESRD (end stage renal disease) on dialysis Code(s): N18.6 - END STAGE RENAL DISEASE; Z99.2 - DEPENDENCE ON RENAL DIALYSIS Status: Chronic (5) Hypertension Code(s): I10 - ESSENTIAL (PRIMARY) HYPERTENSION Status: Chronic Qualifiers: Hypertension type: essential hypertension Qualified Code(s): I10 - Essential (primary) hypertension (6) Secondary hyperparathyroidism of renal origin Code(s): N25.81 - SECONDARY HYPERPARATHYROIDISM OF RENAL ORIGIN Status: Chronic - Plan ABD US no GB lesion. TFTs ok -: discuss with Dr Bryce DC? * .
[2017-12-20] MEDS: Acetaminophen/Codeine 30-300mg Tablet PO PRN ×2 (09:31→14:12)
[2017-12-20] MEDS: Insulin Glargine 8 UNITS in Pre-Filled Syringe 1 EACH SC SCH (09:32)
--- NOTE | 2017-12-20 12:10 | DIS ---
TRANSFER OF CARE NOTE PRIMARY CARE PROVIDER: Xiomara Anthony DATE OF ADMISSION: 12/17/2017 DATE OF DISCHARGE: 12/20/2017 DISCHARGE DISPOSITION: Home. FINAL DIAGNOSES: 1. Demand ischemia. 2. Hypertensive emergency. 3. End-stage renal disease. 4. 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 ALLERGIES: ASPIRIN. CODE STATUS: FULL. PENDING AT THE TIME OF DISCHARGE: Nothing. HOSPITAL COURSE: The patient admitted to [facility] for chest pain, headache. Initia l white count 11.7, hemoglobin 10.4, hematocrit 44.5, sodium 135, potassium 3.7. Troponins were elev ated in the 0.[address] Auguste was consulted for hemodialysis. Her creatinine was approximately 10 indicating inadequately dialyzed. Initial calcium was 17. With dialysis it came down to 11.8, creat inine came down to 5.75. She underwent cardiac catheterization on 12/17/2017. She had 3-vessel eric nary artery disease, none of it flow limiting. She was not placed on aspirin because of her allergy. She was dialyzed here in the hospital on a daily basis. Currently, she is doing well. VITAL SIGNS: Blood pressure 121/67, pulse 75, respirations 13, room air sat 95. CHEST: Clear. HEART: Regular rate and rhythm. She is being discharged on her home medicines. FOLLOWUP: To follow up with hemodialysis Sunday, Sunday, Sunday, to follow up with her PCP on a w eekly basis in 1 week. In addition, abdominal ultrasound was done during her hospital stay which was unremarkable.
[2017-12-20 17:34] VITALS: BP 121/67; TEMP 97.9
== END 2017-12-20 19:56 | disposition home or self-care (01) | DRG 286 ==
LOC: ERS 10:01 → 2NO 11:49
PROVIDERS: ADMIT Internal Medicine; ATTEND Internal Medicine
PROC: 4A023N7 Measurement of Cardiac Sampling and Pressure, Left Heart, Percutaneous Approach (ICD-10-PCS; principal; 2017-12-18)
PROC: B2111ZZ Fluoroscopy of Multiple Coronary Arteries using Low Osmolar Contrast (ICD-10-PCS; 2017-12-18)
DX: I24.8 Other forms of acute ischemic heart disease (principal); N18.6 End stage renal disease; I16.1 Hypertensive emergency; E87.1 Hypo-osmolality and hyponatremia; N25.81 Secondary hyperparathyroidism of renal origin; I12.0 Hypertensive chronic kidney disease with stage 5 chronic kidney disease or end stage renal disease; E83.52 Hypercalcemia; E11.22 Type 2 diabetes mellitus with diabetic chronic kidney disease; Z99.2 Dependence on renal dialysis; E78.5 Hyperlipidemia, unspecified; E11.43 Type 2 diabetes mellitus with diabetic autonomic (poly)neuropathy; K31.84 Gastroparesis; Z88.6 Allergy status to analgesic agent; Z88.0 Allergy status to penicillin; Z88.2 Allergy status to sulfonamides; Z88.8 Allergy status to other drugs, medicaments and biological substances
CPT/HCPCS: 36415; 36416; 70496; 71045; 76700; 76942; 80048; 80053; 80061; 82553; 82805; 83690; 83880; 83970; 84436; 84443; 84479; 84484; 85025; 87340; 90935; 93005; 93010; 93458; 93798; 94760; 96360; A4216; C1760; C1769; G0257; J1644; J1650; J2001; J2250; J3010

== ENCOUNTER 2018-07-30 06:56 | Day surgery (SDC) | payer MEDICARE, BC ==
[2018-07-30 10:15] VITALS: BMI 29.5
--- NOTE | 2018-07-30 10:16 | SPC ---
LEFT UPPER EXTREMITY ARTERIOVENOUS DIALYSIS FISTULOGRAM AND VENOGRAM TO SVC: Date: 07/30/18 HISTORY: Patient with end-stage renal disease and left upper extremity arteriovenous dialysis fistula. Patient complains of pain along the course of the fistula. TECHNIQUE: After informed consent was obtained, the patient was placed on the angiography table in the supine po sition. Left upper extremity was meticulously prepped and draped in the usual sterile fashion. Limite d sonographic evaluation of the fistula was performed, which demonstrated patent fistula in the left upper extremity. The skin and subcutaneous tissues at the intended puncture site were infiltrated with buffered 1% lid ocaine for local anesthesia. The left upper extremity arteriovenous dialysis fistula was accessed uti lizing micropuncture technique, and a 5 [place] introducer sheath was placed. A fistulogram and venogr am to the SVC were performed. Manual compression was applied to the venous outflow, and contrast was injected to reflux the arteriovenous anastomosis. The introducer catheter was removed and hemostasis was achieved with direct pressure. The patient willow erated the procedure well and without immediate complication. The patient was transported to nurse's holding area for further monitoring prior to discharge. FINDINGS: Patent left upper extremity arteriovenous dialysis fistula, including patent arteriovenous anastomosi s. There is generalized narrowing and caliber of the most proximal venous inflow, but this was also n oted on the prior exam. Fistula distal to this region is larger in caliber, but patent to the level o f the SVC. No flow-limiting stenosis is identified. Venous outflow has a similar appearance to the pr ior exam. Fluoroscopy: Total fluoroscopy time was 0.9 minutes with a total dose of 19,079 mGy*cm^2. IMPRESSION: 1. Patent left upper extremity arteriovenous dialysis fistula with patent venous outflow to the leve l of the SVC. 2. Patent arteriovenous anastomosis of the left upper extremity arteriovenous dialysis fistula. POS: [facility]
[2018-07-30] MEDS ORDERED: Iopamidol 250 51% 100 ML VIAL FS ONE (10:41)
[2018-07-30] MEDS ORDERED: Heparin 10,000 UNITS/1 ML VIAL ONE (11:11)
== END 2018-07-30 10:35 | disposition home or self-care (01) ==
LOC: SPEC 06:56
PROVIDERS: ATTEND Internal Medicine Nephrology
PROC: B51W1ZZ Fluoroscopy of Dialysis Shunt/Fistula using Low Osmolar Contrast (ICD-10-PCS; principal; 2018-07-30)
DX: T82.848A Pain due to vascular prosthetic devices, implants and grafts, initial encounter (principal); N18.6 End stage renal disease; Z79.4 Long term (current) use of insulin; Z79.899 Other long term (current) drug therapy; Z99.2 Dependence on renal dialysis
CPT/HCPCS: 36901; J1644

== ENCOUNTER 2019-03-25 06:38 | Day surgery (SDC) | payer MEDICARE, BC ==
[2019-03-25] MEDS ORDERED: Sodium Bicarbonate 2.5 MEQ/5 ML VIAL ONE (06:58)
[2019-03-25 09:16] VITALS: BMI 28.8
[2019-03-25 09:20] VITALS: BP 118/73; TEMP 97.9
--- NOTE | 2019-03-25 09:42 | SPC ---
EXAM: [facility]AV S PROVIDED CLINICAL HISTORY: Increased bleeding from left upper extremity arteriovenous dialysis fistula after dialysis. COMPARISON: 07/30/2018 TECHNIQUE: After informed consent was obtained, the patient was placed on the angiography table in the supine po sition. The left upper extremity was meticulously prepped and draped in usual sterile fashion. The skin and subcutaneous tissues were infiltrated with buffered 1% lidocaine for local anesthesia at the intended puncture site. The fistula was accessed directed in the venous direction with micropuncture technique, and a 5 [place] introducer sheath was placed. A fistulogram and venogram to t he SVC were performed. Manual compression was applied to the venous outflow and contrast was injected to reflux the arterial anastomosis. The introducer sheath was removed, and hemostasis was achieved with direct pressure. A dry sterile dr essing was placed at puncture site. The patient tolerated the procedure well and without immediate complication. Fluoroscopy: Time-0.9 minutes Total dose-19,079 mGy centimeter squared FINDINGS: Left upper extremity arteriovenous dialysis fistula as well as venous outflow to the level of the SVC are patent. Again noted is generalized narrowing and smaller caliber of the most proximal venous inflow, but this is stable when compared to the prior exam and does not represent a f low limiting narrowing. The arteriovenous anastomosis is patent. IMPRESSION: Patent left upper extremity arteriovenous dialysis fistula with patent venous outflow to the level of the SVC. Arteriovenous anastomosis is also patent. The appearance of the venous outflow is unchanged when compared to study on 07/30/2018. No focal significant flow-limiting stenosis is identif ied.
== END 2019-03-25 09:30 | disposition home or self-care (01) ==
LOC: SPEC 06:38
PROVIDERS: ATTEND Internal Medicine Nephrology
PROC: B51W1ZZ Fluoroscopy of Dialysis Shunt/Fistula using Low Osmolar Contrast (ICD-10-PCS; principal; 2019-03-25)
DX: T82.848A Pain due to vascular prosthetic devices, implants and grafts, initial encounter (principal); I13.2 Hypertensive heart and chronic kidney disease with heart failure and with stage 5 chronic kidney disease, or end stage renal disease; E11.22 Type 2 diabetes mellitus with diabetic chronic kidney disease; N18.6 End stage renal disease; I50.9 Heart failure, unspecified; D63.1 Anemia in chronic kidney disease; F41.9 Anxiety disorder, unspecified; F32.9 Major depressive disorder, single episode, unspecified; Z79.4 Long term (current) use of insulin; Z79.899 Other long term (current) drug therapy; Z99.2 Dependence on renal dialysis
CPT/HCPCS: 36901

== ENCOUNTER 2019-05-02 22:51 | Emergency (ER) | payer MEDICARE, BC ==
--- NOTE | 2019-05-03 08:45 | RAD ---
RIGHT KNEE 4 VIEWS: HISTORY: Injury. FINDINGS: Joint spaces are maintained. No significant degenerative change. No fracture. There is a joint eff usion noted in the suprapatellar region. Arterial calcification is prominent. IMPRESSION: No acute osseous abnormality. Joint effusion is noted. POS: [facility]
--- NOTE | 2019-05-03 08:49 | RAD ---
LEFT WRIST 3 VIEWS: HISTORY: Fall. FINDINGS: No evidence of acute fracture. Mild degenerative change at the 1st carpometacarpal joint. Prominent arterial calcification. IMPRESSION: No acute osseous abnormality. POS: [facility]
--- NOTE | 2019-05-03 08:50 | RAD ---
RIGHT WRIST 3 VIEWS: INDICATION: Fall with injury. FINDINGS: The carpals appear normally aligned. Very mild degenerative change noted. Arterial calcifications s een. IMPRESSION: No acute fracture identified. POS: [facility]
--- NOTE | 2019-05-03 08:51 | RAD ---
LEFT FOOT 3 VIEWS: HISTORY: Fall. FINDINGS: Enthesophytes from the calcaneus. The tarsals appear intact. Metatarsals and phalanges appear intac t. IMPRESSION: No acute fracture identified. POS: [facility]
--- NOTE | 2019-05-03 08:52 | RAD ---
RIGHT FOOT 3 VIEWS: HISTORY: Fall with injury. FINDINGS: Enthesophytes from the calcaneus. Mild degenerative change in the intertarsal and tarsometatarsals. No fracture identified. IMPRESSION: No acute finding. POS: [facility]
--- NOTE | 2019-05-03 09:02 | RAD ---
LEFT HAND 3 VIEWS: HISTORY: Injury. FINDINGS: The carpals appear normally aligned. The metacarpals and phalanges appear intact. IMPRESSION: No acute fracture. POS: [facility]
--- NOTE | 2019-05-03 09:03 | RAD ---
RIGHT HAND 3 VIEWS: HISTORY: Fall with injury. FINDINGS: Carpals appear normally aligned. The metacarpals and phalanges appear intact. IMPRESSION: No acute fracture identified. POS: [facility]
== END 2019-05-03 02:11 | disposition home or self-care (01) ==
LOC: ERS 22:51
DX: S80.212A Abrasion, left knee, initial encounter (principal); I12.0 Hypertensive chronic kidney disease with stage 5 chronic kidney disease or end stage renal disease; N18.6 End stage renal disease; E78.5 Hyperlipidemia, unspecified; E78.00 Pure hypercholesterolemia, unspecified; F17.210 Nicotine dependence, cigarettes, uncomplicated; Z99.2 Dependence on renal dialysis; W18.30XA Fall on same level, unspecified, initial encounter

== ENCOUNTER 2019-06-07 19:09 | Observation (INO) | payer MEDICARE, BC ==
[2019-06-07] MEDS ORDERED: Nitroglycerin 2% Ointment 1 INCH/1 GM Packet ONE (19:30)
[2019-06-07 19:37] LABS: #Eosinphils 0.2 thou/uL (0.0-0.7); #Lymphocytes 2.4 thou/uL (1.20-3.40); #Monocytes 0.7 thou/uL (0.11-0.59); #Neutrophils 7.7 thou/uL (1.40-6.50); %Basophils 0.4 % (0.0-1.0); %Eosinophils 1.5 % (0.0-10.0); %Lymphocytes 21.5 % (21.0-51.0); %Monocytes 6.6 % (0.0-10.0); Hemoglobin 14.4 g/dL (12.0-16.0); Mean Corpuscular HGB CONC 33.3 g/dL (32.0-36.0); Mean Corpuscular Hemoglobin 33.7 pg (27.0-31.0); Mean Platelet Volume 9.2 fL (7.4-10.4); Platelet Count 169 thou/uL (130-400); RBC Distribution Width 14.4 % (11.5-14.5); Red Blood Cell (RBC) Count 4.28 mill/uL (4.20-5.40)
--- NOTE | 2019-06-07 19:52 | RAD ---
XR Chest 1 View Portable History: Chest pain Comparison: Radiograph 2017 Findings: There is mild obscuration left heart border and right hilum. There is cephalization the pul monary vasculature. No pneumothorax. Small effusions. Impression: Findings of pulmonary edema.
[2019-06-07 20:00] LABS: ALT (SGPT) 32 U/L (8-55); AST (SGOT) 20 U/L (5-34); Albumin 4.1 g/dL (3.5-5.0); Alkaline Phosphatase 212 U/L (40-110); Anion Gap 18 mmol/L (10-20); BUN (Urea Nitrogen) 60 mg/dL (9.8-20.1); Bilirubin, Total 0.5 mg/dL (0.2-1.2); CK (CPK) 74 U/L (29-168); Calc. Creatinine Clearance 0 mL/min (70-130); Calcium 10.1 mg/dL (7.8-10.44); Carbon Dioxide 30 mmol/L (22-29); Chloride 86 mmol/L (98-107); Estimated GFR-MDRD 5; Globulin 3.2 g/dL (2.4-3.5); Glucose 518 mg/dL (70-105); Lipase 61 U/L (8-78); Potassium 4.1 mmol/L (3.5-5.1); Protein, Total 7.3 g/dL (6.0-8.3); Sodium 130 mmol/L (136-145)
[2019-06-07 20:22] LABS: CKMB 2.6 ng/mL (0-6.6)
[2019-06-07] MEDS ORDERED: Insulin Regular 300 UNITS/3 ML VIAL ONE (20:28)
[2019-06-07] MEDS ORDERED: hydrALAZINE 20 MG/ML VIAL ONE (20:30)
[2019-06-08] MEDS ORDERED: Acetaminophen 325 MG TAB PO PRN (00:03)
[2019-06-08] MEDS ORDERED: hydrALAZINE 20 MG/ML VIAL SLOW IVP PRN (00:03)
[2019-06-08] MEDS ORDERED: Dextrose 5% in Water 1,000 ML IV PRN (00:03)
[2019-06-08] MEDS ORDERED: HumaLOG 300 UNITS/3 ML VIAL SC PRN (00:03)
[2019-06-08] MEDS ORDERED: Morphine 2 MG/ML SYRINGE SLOW IVP PRN (00:03)
[2019-06-08] MEDS ORDERED: HYDROcodone/Acetaminophen 5/325 mg Tablet PO PRN (00:03)
[2019-06-08] MEDS ORDERED: Dextrose 50% Abboject 50 ML SYRINGE SLOW IVP PRN (00:03)
[2019-06-08] MEDS ORDERED: Ondansetron PF 4 MG/2 ML Vial IVP PRN (00:03)
[2019-06-08 00:04] VITALS: BMI 28.8
[2019-06-08] MEDS ORDERED: Famotidine 20 MG TAB PO SCH ×2 (00:15→21:00)
[2019-06-08] MEDS ORDERED: Aspirin Chewable 81 MG TAB PO SCH (00:15)
[2019-06-08] MEDS ORDERED: Isosorbide Mononitrate (ER) 30 MG TAB PO SCH ×2 (00:30→09:00)
[2019-06-08 02:10] LABS: Troponin I 0.067 ng/mL (< 0.028)
[2019-06-08 05:26] LABS: #Eosinphils 0.2 thou/uL (0.0-0.7); #Lymphocytes 2.6 thou/uL (1.20-3.40); #Monocytes 0.6 thou/uL (0.11-0.59); #Neutrophils 7.2 thou/uL (1.40-6.50); %Basophils 0.4 % (0.0-1.0); %Eosinophils 2.2 % (0.0-10.0); %Lymphocytes 24.2 % (21.0-51.0); %Monocytes 5.8 % (0.0-10.0); %Neutrophils 67.4 % (42.0-75.0); Hemoglobin 13.1 g/dL (12.0-16.0); Mean Corpuscular HGB CONC 33.4 g/dL (32.0-36.0); Mean Platelet Volume 9.2 fL (7.4-10.4); Platelet Count 157 thou/uL (130-400); RBC Distribution Width 14.5 % (11.5-14.5); Red Blood Cell (RBC) Count 3.86 mill/uL (4.20-5.40); White Blood Cell (WBC) Count 10.6 thou/uL (4.8-10.8)
[2019-06-08 05:39] LABS: Troponin I 0.067 ng/mL (< 0.028)
[2019-06-08 05:42] LABS: Albumin 3.3 g/dL (3.5-5.0); Anion Gap 19 mmol/L (10-20); BUN (Urea Nitrogen) 71 mg/dL (9.8-20.1); BUN/Creatinine Ratio 8.34; Calc. Creatinine Clearance 9 mL/min (70-130); Calcium 9.8 mg/dL (7.8-10.44); Carbon Dioxide 24 mmol/L (22-29); Chloride 93 mmol/L (98-107); Estimated GFR-MDRD 5; Glucose 224 mg/dL (70-105); Phosphorus 4.2 mg/dL (2.3-4.7); Potassium 4.6 mmol/L (3.5-5.1); Sodium 131 mmol/L (136-145)
[2019-06-08] MEDS ORDERED: FERRIC CITRATE PO SCH (08:00)
[2019-06-08 08:01] VITALS: TEMP 98
[2019-06-08] MEDS ORDERED: Heparin 5,000 UNITS/ML VIAL SC SCH (09:00)
[2019-06-08] MEDS ORDERED: Nitroglycerin 0.4mg/Hour PATCH TD SCH (09:00)
[2019-06-08] MEDS ORDERED: cloNIDine 0.1 MG TAB PO SCH (09:00)
[2019-06-08] MEDS ORDERED: Insulin Glargine 15 UNITS in Pre-Filled Syringe 1 EACH SC SCH (09:00)
[2019-06-08] MEDS ORDERED: Escitalopram Oxalate 20 mg Tablet PO SCH (09:00)
[2019-06-08] MEDS ORDERED: Aspirin 325 mg Enteric Coated Tablet PO SCH (09:00)
[2019-06-08] MEDS ORDERED: Non-Formulary Item 1 EACH (Insulin Glargine,Hum.Rec.Anlog [Lantus Solostar] 15 UNIT) SQ SCH (09:00)
--- NOTE | 2019-06-08 10:58 | CT ---
CT of abdomen and pelvis: 06/08/2019 COMPARISON: 03/12/2017 HISTORY: Epigastric pain TECHNIQUE: Axial CT imaging at 5 mm intervals from lung bases through pubic symphysis without IV cont rast. Coronal reformatted imaging obtained. FINDINGS: Lack of IV contrast media limits assessment of the viscera, vascular structures, and for ly mphadenopathy. Imaged lung bases unremarkable. No free intraperitoneal air or fluid. Mitral annulus and coronary art erial calcification noted. Limited assessment of the liver, gallbladder, spleen, pancreas, and adrenal glands unremarkable. Kidn eys are atrophic and demonstrate prominent bilateral arterial calcification. 2 punctate nonobstructing lower pole left renal calculi are noted. No evidence for bowel inflammatory change or obstruction. Appendix is unremarkable. Multifocal atherosclerotic calcification of the abdominal aorta and its branches noted. Limited assessment for lymphadenopathy is unremarkable. Imaged osseous structures demonstrate no acute findings. IMPRESSION: No acute findings. Incidental findings as detailed above.
[2019-06-08 11:24] VITALS: BP 179/81
--- NOTE | 2019-06-08 14:37 | DIS ---
DATE OF ADMISSION: 06/08/2019 DATE OF DISCHARGE: 06/08/2019 DISCHARGE DISPOSITION: Home. PRIMARY DISCHARGE DIAGNOSIS: Chest pain. SECONDARY DISCHARGE DIAGNOSES: 1. Hypertensive urgency. 2. Abdominal pain, resolved. 3. End-stage renal disease, on hemodialysis. 4. Diabetes mellitus, type 2. 5. History of moderate coronary artery disease based on cardiac cath done in December of 2017, for medical management. PROCEDURES DONE DURING HOSPITALIZATION: The patient had a chest x-ray done, which showed pulmonary vascular congestion. CT of the abdomen and pelvis without contrast done showed no acute findings. H and H 13 and 39, platelet count 157, MCV is 102, white count of 10. BUN 71, creatinine 8.5, serum bicarb 24. BNP 94. DISCHARGE MEDICATIONS: 1. Pravachol 40 mg p.o. at bedtime. 2. Protonix 40 mg p.o. daily. 3. Lactulose twice daily p.r.n. 4. Lantus 25 units subcu q.a.m. 5. [place] p.r.n. for pain. 6. Humalog 5 units subcu 3 times daily. 7. Escitalopram 20 mg p.o. daily. 8. Clonidine 0.1 mg p.o. 3 times daily. 9. Norvasc 5 mg p.o. daily. 10. Amitriptyline 75 mg p.o. at bedtime. 11. Albuterol inhaler q.4 hourly p.r.n. DISCHARGE PLAN: The patient to follow up with her primary care physician, Dr. Brina Anhtony in 1 week. She needs to have hemodialysis done tomorrow. BRIEF COURSE DURING HOSPITALIZATION: The patient initially came in with complaints of chest pain. In view of the patient's chronic medical issues and moderate coronary artery disease, the patient was placed under observation on telemetry. She has had serial troponins done with peaking of troponin around 0.10, CK-MB was 2.6. The patient's chest pain completely resolved during her brief stay here. She has had abdominal pain and a CT of the abdomen and pelvis also was obtained, which did not reveal any acute pathology. Her abdominal pain completely resolved during her brief stay here. The patient did not want to have a repeat stress test or angiogram. She was wanting to go home. The scheduled dialysis is tomorrow and she has been counseled to have it done as before. Please note, I have seen and examined the patient on the day of discharge. No new medications were given for her. Job ID: [id number]
[2019-06-08] MEDS ORDERED: Pravastatin Sodium 40 MG TAB PO SCH (21:00)
--- NOTE | 2019-06-09 07:47 | HP ---
PRESENTING COMPLAINT: Chest pain, headache, and elevated blood pressure. HISTORY OF PRESENT ILLNESS: Ms. Zhu is a 53-year-old female with history of hypertension; diabetes mellitus; diabetic retinopathy with legal blindness, ESRD, on HD MWF, past dialysis was yesterday with 4 L fluid removal. The patient said the patient developed a headache with chest pain. Chest pain was more like pressure-like in the substernal region, no radiating. She also admits to intermittent abdominal cramps, which has been ongoing for the last two days. She denies any dysuria. She still makes small amount of urine. She has had dialysis yesterday, was uneventful. On presentation in the ED, she was noted with marked elevated blood pressure with systolic in the 220s. She has been given a nitroglycerin patch and her blood pressure improved to the 180s. She is also noted with markedly elevated glucose of 500. She states she is adherent with her medication. She states she had awugwyuqa-sk-rpnpgya blood pressure in the past with added medication resulting in hypotensive episode. She states she is on the medication she takes as p.r.n. but unsure of the name. Her daughter will bring her for medications. PAST MEDICAL HISTORY: Significant for hypertension, diabetes mellitus, ESRD, legal blindness. PAST SURGICAL HISTORY: AVF creation. ALLERGIES: NO KNOWN DRUG ALLERGIES. HOME MEDICATIONS: See SEP. Daughter will bring full list. REVIEW OF SYSTEMS: All system review x14 were negative except as mentioned above. FAMILY HISTORY: Significant for hypertension, but no ESRD. PHYSICAL EXAMINATION: CURRENT VITALS: Blood pressure of 180/91, pulse of 83, respiratory rate of 18, afebrile, O2 saturation of 93% on room air. GENERAL: Overweight female, not in any distress. HEAD: Atraumatic, normocephalic. NECK: No JVD. No carotid bruit. RESPIRATORY: Faint bibasilar crepitation, but has good air entry. CARDIOVASCULAR: S1, S2. Rate and rhythm regular. Mild substernal left-sided chest wall tenderness. ABDOMEN: Full, soft. Equivocal tenderness over the right lower quadrant but no guarding. No epigastric area tenderness. EXTREMITIES: No pedal edema. Left upper extremity AV fistula in situ. NEURO: Patient is alert, oriented, and conversant. LABORATORY DATA: Chest x-ray shows mild pulmonary congestive changes. WBC 11, platelet 169, hemoglobin 14, neutrophils 70%. Potassium 4.1, sodium 130, BUN 60, creatinine 8, bicarb 30. AST and ALT normal, alkaline phosphatase 212. Troponin 0.102. BNP of 94. Lipase 61. EKG shows wide complex rhythm with rate of 94 beats per minute, QTc of 500 milliseconds. IMPRESSION: 1. Hypertensive urgency. 2. Diabetes mellitus with hyperglycemia. 3. Unstable angina with non-ST myocardial infarction. 4. Wide complex rhythm. 5. Abdominal pain. 6. Hypertensive urgency. PLAN: 1. We will obtain patient's home medication, but for now we will dose IV hydralazine as needed. We will also start the patient on isosorbide as b.i.d. given patient's prior reported history of high-dose medication-induced hypotension. We will monitor blood pressure overnight. 2. Chest pain with elevated troponin. We will do serial set of cardiac enzymes. Follow with nitroglycerin paste and Imdur. We will consult Cardiology given associated wide complex rhythm. We will do aspirin for now as well as subcutaneous heparin. The patient might need further testing per Cardiology. 3. Hyperglycemia. We will start insulin sliding scale. We will initiate previous dose of Lantus. 4. DVT prophylaxis, subcutaneous heparin. 5. Advanced directives. Patient is full code. 6. Abdominal pain. We will obtain a CT without contrast to rule out any intraabdominal pathology. Total time spent in review of record, discussion with patient, and evaluation greater than 70 minutes. Job ID: [id number]
--- NOTE | 2019-06-10 07:57 | PQF ---
LIDA PERLA EBIMA [id number] CLINICAL DOCUMENTATION CLARIFICATION FORM: POST DISCHARGE Addendum to original discharge summary date: ____ Late entry note date: __ DATE: 06/10/2019 ATTN:EDIL ANDERSON Please exercise your independent, professional judgment in responding to the clarification form. Clinical indicators are provided on the bottom of this form for your review Please check appropriate box(s) to clarify if the following diagnosis has been ruled in or ruled out: NSTEMI [ ] Ruled in diagnosis [ ] Continue to treat [ ] Resolved [ ] Ruled out diagnosis [ ] Cannot rule out diagnosis [ ] Other diagnosis [ ] Unable to determine For continuity of documentation, please document condition throughout progress notes and discharge summary. Thank You. CLINICAL INDICATORS - SIGNS / SYMPTOMS / LABS - Unstable angina with non-ST myocardial infarction- H&P, 06/08, EDIL ANDERSON - Chest pain with elevated troponin-H&P, 06/08, EDIL ANDERSON - Troponin I: 0.102- Laboratory, 06/07 - Hypertensive emergency- ED record, 06/07, Helen Zepeda MD - Hypertensive urgency-DS, 06/08, Roseann Blanton RISK FACTORS - hx of moderate CAD- DS, 06/08, Roseann Blanton - ESRD on hemodialysis-DS, 06/08, Roseann Blanton TREATMENTS -subcutaneous Heparin -H&P, 06/08, EDIL ANDERSON (This form is maintained as a part of the permanent medical record) 2014 [employer]. All Rights Reserved Viviana Huerta [not provided] [not provided] [facility]
== END 2019-06-08 14:33 | disposition home or self-care (01) ==
LOC: ERS 19:09 → INTOOBSV 06-08 → 2SW 06-08
PROVIDERS: ADMIT Internal Medicine; ATTEND Internal Medicine
DX: R07.2 Precordial pain (principal); I16.0 Hypertensive urgency; I12.0 Hypertensive chronic kidney disease with stage 5 chronic kidney disease or end stage renal disease; E11.22 Type 2 diabetes mellitus with diabetic chronic kidney disease; N18.6 End stage renal disease; E11.319 Type 2 diabetes mellitus with unspecified diabetic retinopathy without macular edema; H54.8 Legal blindness, as defined in USA; E11.65 Type 2 diabetes mellitus with hyperglycemia; F17.210 Nicotine dependence, cigarettes, uncomplicated; R10.13 Epigastric pain; I25.10 Atherosclerotic heart disease of native coronary artery without angina pectoris; I70.0 Atherosclerosis of aorta; Z79.4 Long term (current) use of insulin; Z79.899 Other long term (current) drug therapy; Z99.2 Dependence on renal dialysis
CPT/HCPCS: 36415; 36416; 71045; 74176; 80053; 80069; 82550; 82553; 83690; 83735; 83880; 84484; 85025; 93005; J0360; J1644; J1815

== ENCOUNTER 2020-07-27 15:07 | Inpatient (IN) | payer MEDICARE, BC ==
[~2020-07-27 15:07] MED LIST: Iopamidol-370 76% 500 ML 1 ML ONE
[2020-07-27 15:32] LABS: #Basophils 0.1 thou/uL (0.0-0.2); #Eosinphils 0.1 thou/uL (0.0-0.7); #Monocytes 0.6 thou/uL (0.11-0.59); #Neutrophils 5.1 thou/uL (1.40-6.50); %Basophils 0.7 % (0.0-1.0); %Eosinophils 1.3 % (0.0-10.0); %Lymphocytes 24.9 % (21.0-51.0); %Monocytes 8.1 % (0.0-10.0); %Neutrophils 64.9 % (42.0-75.0); Hemoglobin 9.4 g/dL (12.0-16.0); Mean Corpuscular HGB CONC 33.9 g/dL (32.0-36.0); Mean Corpuscular Hemoglobin 33.2 pg (27.0-31.0); Mean Corpuscular Volume 98.1 fL (78.0-98.0); Mean Platelet Volume 9.4 fL (7.4-10.4); Platelet Count 156 thou/uL (130-400); RBC Distribution Width 13.6 % (11.5-14.5); Red Blood Cell (RBC) Count 2.83 mill/uL (4.20-5.40); White Blood Cell (WBC) Count 7.8 thou/uL (4.8-10.8)
[2020-07-27 16:00] LABS: AST (SGOT) 24 U/L (5-34); Albumin 3.7 g/dL (3.5-5.0); BUN (Urea Nitrogen) 27 mg/dL (9.8-20.1); Bilirubin, Total 0.5 mg/dL (0.2-1.2); Calc. Creatinine Clearance 0 mL/min (70-130); Calcium 9.2 mg/dL (7.8-10.44); Globulin 3.2 g/dL (2.4-3.5); Glucose 374 mg/dL (70-105); Protein, Total 6.9 g/dL (6.0-8.3)
[2020-07-27 16:05] LABS: Alkaline Phosphatase 183 U/L (40-110)
[2020-07-27 16:08] LABS: ALT (SGPT) 36 U/L (8-55)
[2020-07-27 16:09] LABS: Anion Gap 18 mmol/L (10-20); Carbon Dioxide 40 mmol/L (22-29); Chloride 86 mmol/L (98-107); Potassium 3.7 mmol/L (3.5-5.1); Sodium 140 mmol/L (136-145)
[2020-07-27 16:15] LABS: CKMB 1.7 ng/mL (0-6.6)
[2020-07-27] MEDS ORDERED: Aspirin Chewable 81 MG TAB ONE (17:14)
[2020-07-27] MEDS ORDERED: Morphine 4 MG/ML VIAL ONE (18:02)
[2020-07-27] MEDS ORDERED: Nitroglycerin 2% Ointment 1 INCH/1 GM Packet ONE (18:02)
--- NOTE | 2020-07-27 18:42 | CT ---
CT angiogram chest: 07/27/2020 COMPARISON: 01/27/2015 HISTORY: Cough, chest pain, dizziness TECHNIQUE: Axial CT imaging at 2.5 mm intervals through the chest with IV contrast using CT angiogram protocol with coronal and oblique sagittal 3-D reformatted imaging FINDINGS: The imaged upper abdomen is unremarkable. Moderate-sized bilateral pleural effusions are pr esent. No axillary lymphadenopathy. Multiple mildly enlarged nonspecific mediastinal lymph nodes are noted, including subcarinal adenopathy measuring up to 1.2 cm and right paratracheal adenopathy m easuring up to 1.1 cm. No significant pericardial or mediastinal fluid is noted. There is extensive coronary arterial calcification. No pneumothorax is seen on either side. Minimal inferior groundglass opacity noted within the right upper lobe. There is peripheral groundgla ss opacity within the inferior aspect of the right middle lobe. There is partial consolidation/collapse involving the inferior aspect of both lower lobes, right greater than left and there is increased linear interstitial density with superimposed mild groundglass opacity within the inferior aspect of the lingula. Small left upper lobe nodules are suspected laterally/inferiorly measuring up to 6 mm on axial image 54 not discretely visualized on the prior examination. There is no evidence for acute pulmonary arterial embolism. No worrisome lytic or blastic bone lesion . No acute osseous abnormality. IMPRESSION: Findings most consistent with pulmonary edema. Superimposed nonspecific infectious pneumo nitis cannot be excluded. Extensive coronary arterial calcification. No evidence for pulmonary arterial embolism. 6 mm left upper lobe pulmonary nodule for which six-month follow-up advised. CODE T
[2020-07-27 18:51] LABS: Troponin I 0.153 ng/mL (< 0.028)
[2020-07-27] MEDS ORDERED: Dextrose 50% Abboject 50 ML SYRINGE SLOW IVP PRN (19:39)
[2020-07-27] MEDS ORDERED: Dextrose 5% in Water 1,000 ML IV PRN (19:39)
[2020-07-27] MEDS ORDERED: Acetaminophen 650 MG Suppository PR PRN (19:39)
[2020-07-27] MEDS ORDERED: Acetaminophen 325 MG TAB PO PRN (19:39)
[2020-07-27] MEDS ORDERED: Albuterol Sulfate 2.5 mg/3 ml Neb NEB PRN (20:26)
[2020-07-27] MEDS ORDERED: Cepastat Lozenges 1 LOZ PO PRN (20:30)
--- NOTE | 2020-07-27 20:48 | PDOC.HHP ---
Hospitalist HPI - History of Present Illness History of Present Illness: ADMISSION DATE: 07/27/2020 TIME OF ASSESSMENT: 1800 PRIMARY CARE PHYSICIAN: Dr. Anthony CHIEF COMPLAINT: Chest tightness HPI: This is a 54-year-old Beninese-speaking woman who presents to the emergency department with complaints of chest tightness since Sunday evening which has been intermittent but persistent. Patient states that she went outside to smoke a cigarette while it was snowing and states that she felt discomfort in her chest upon taking a deep breath in of cold air. Since then she has been experiencing tightness with her chest and occasional coughing fits exacerbated by deep inspiration with subsequent discomfort on the front of her chest as well as in her back but denies any shooting pain through to her back. States it feels as if somebody is pressing with one hand on her back and one on her chest squeezing inward. She tried taking hydrocodone at home but states that it made her extremely drowsy therefore opted to seek medical attention today. At present she denies having any discomfort since she was given morphine on arrival. She has a known history of end-stage renal disease and has dialysis 3 times a week on Mondays, Wednesdays and Fridays. Her civil engineering project designer is Dr. Auguste and she had dialysis as usual yesterday. She has noted increased swelling in her legs and hands which she attributes to changes in her diet the last few days. She has had a decreased appetite since the weekend which has caused her glucose to drop to the 80s therefore she has been drinking a lot more juice than she normally does. Feels this is contributing to the swelling. Denies having any recent nausea or vomiting. No abdominal pain. She has a chronic cough which is unchanged and at times productive for white phlegm. Since Sunday she has had general body aches and sneezing. Also complains of a sore throat. Denies havi ng any recent fevers, chills or sweats. Does not make any urine and reports having regular bowel movements. Other review of systems are negative. ED COURSE: On arrival to the emergency department she had an EKG done which showed a left bundle branch block, heart rate of [address] changes or T wave abnormalities. Laboratory studies are notable for white count of 7.8, hemoglobin 9.4, hematocrit 27.8, platelets 156, neutrophils 64.9%. Sodium 140, potassium 3.7, chloride 86, carbon oxide 40, anion gap 18, BUN 27, creatinine 5.6, GFR 7, glucose 374, alkaline phosphatase 183, total bilirubin 0.5, AST 24, ALT 36. CK- MB 1.7. Initial troponin indeterminate 0.159 and second troponin was 0.153. CT angiogram of the chest was done with findings most consistent with pulmonary edema. Superimposed nonspecific infectious pneumonitis cannot be excluded. Extensive coronary arterial calcification. No evidence for pulmonary arterial embolism. 6 mm left upper lobe pulmonary nodule for which six-month follow-up advised. At one point her BP increased to 204/84 and improved after meds to 187/67. Reports having a headache that also resolved. She was treated with 4 mg of morphine IV, Nitro-Bid 1 inch and 325 mg of aspirin. PAST MEDICAL HISTORY: 1. Hyperlipidemia 2. Hypertension 3. End-stage renal disease on hemodialysis Thor Sunday (under the care of Dr. Auguste) she is anuric. 4. Tobacco abuse 5. Blind in right eye 6. Type 2 diabetes mellitus, insulin pump 7. CAD PAST SURGICAL HISTORY: 1. x3 2. AV fistula to left upper extremity 3. Hernia surgery x2 4. History of peritoneal dialysis 5. Carpal tunnel surgery bilaterally 6. Right eye surgery 7. Left eye surgery 8. Uterine surgery 9. Cardiac catheterization in 2019 with moderate CAD SOCIAL HISTORY: Patient lives with her family. She walks independently and does not require assistive devices. She smokes a half a pack a day. Denies any alcohol consumption. FAMILY HISTORY: Noncontributory ALLERGIES: No known drug allergies CURRENT MEDICATIONS: 1. Lantus 5 units subcutaneous 3 times daily 2. Pravastatin 40 mg p.o. daily 3. Pantoprazole 40 mg p.o. daily 4. Escitalopram 10 mg p.o. daily 5. Amitriptyline 50 mg p.o. at bedtime 6. Clonidine 0.3 mg p.o. daily 7. Albuterol inhaler - Exam General Appearance: NAD, awake alert General - other findings: VS: Temp 98.2, HR 79, BP 173/84, RR 20, O2 sat 93% on room air. Eye: anicteric sclera ENT: normocephalic atraumatic, no oropharyngeal lesions Neck: supple, no lymphadenopathy Heart: RRR, no rubs, normal peripheral pulses Respiratory - other findings: Decreased at bases, no wheezing, deep inspiration causes coughing Gastrointestinal: soft, non-tender, non-distended, normal bowel sounds Extremities: no cyanosis, no clubbing, no edema Skin: normal turgor, no lesions, no rashes Neurological: cranial nerve grossly intact, normal sensation to touch, no weakness Musculoskeletal: normal tone, normal strength, no muscle wasting Psychiatric: normal affect, normal behavior, A&O x 3 Hospitalist Results - Labs Result Diagrams: 07/27/20 15:24 07/27/20 15:24 Lab results: WBC 7.8 thou/uL (4.8-10.8) 07/27/20 15:24 Hgb 9.4 g/dL (12.0-16.0) L 07/27/20 15:24 Hct 27.8 % (36.0-47.0) L 07/27/20 15:24 MCV 98.1 fL (78.0-98.0) H 07/27/20 15:24 Plt Count 156 thou/uL (130-400) 07/27/20 15:24 Neutrophils % 64.9 % (42.0-75.0) 07/27/20 15:24 Sodium 140 mmol/L (136-145) 07/27/20 15:24 Potassium 3.7 mmol/L (3.5-5.1) 07/27/20 15:24 Chloride 86 mmol/L (98-107) L 07/27/20 15:24 Carbon Dioxide 40 mmol/L (22-29) H 07/27/20 15:24 BUN 27 mg/dL (9.8-20.1) H 07/27/20 15:24 Creatinine 5.86 mg/dL (0.6-1.1) H 07/27/20 15:24 Glucose 374 mg/dL (70-105) H 07/27/20 15:24 Calcium 9.2 mg/dL (7.8-10.44) 07/27/20 15:24 Total Bilirubin 0.5 mg/dL (0.2-1.2) 07/27/20 15:24 AST 24 U/L (5-34) 07/27/20 15:24 ALT 36 U/L (8-55) 07/27/20 15:24 Alkaline Phosphatase 183 U/L (40-110) H 07/27/20 15:24 CK-MB (CK-2) 1.7 ng/mL (0-6.6) 07/27/20 15:24 Troponin I 0.153 ng/mL (< 0.028) H 07/27/20 18:15 Serum Total Protein 6.9 g/dL (6.0-8.3) 07/27/20 15:24 Albumin 3.7 g/dL (3.5-5.0) 07/27/20 15:24 - Radiology Interpretation CT scan - chest Status: report reviewed by ma Hospitalist H&P A/P - Problem (1) Elevated troponin I level Code(s): R77.8 - OTHER SPECIFIED ABNORMALITIES OF PLASMA PROTEINS Status: Acute (2) Hypertensive emergency Code(s): I16.1 - HYPERTENSIVE EMERGENCY Status: Acute (3) Shortness of breath Code(s): R06.02 - SHORTNESS OF BREATH Status: Acute (4) Anemia Code(s): D64.9 - ANEMIA, UNSPECIFIED Status: Acute (5) CAD (coronary artery disease) Code(s): I25.10 - ATHSCL HEART DISEASE OF [place] CORONARY ARTERY W/O ANG PCTRS Status: Acute (6) Hyperlipidemia Code(s): E78.5 - HYPERLIPIDEMIA, UNSPECIFIED Status: Chronic (7) DM2 (diabetes mellitus, type 2) Status: Chronic Qualifiers: Diabetes mellitus middle or intermediate school principal insulin use: with middle or intermediate school principal use Chronic kidney disease stage: on chronic dialysis (8) ESRD (end stage renal disease) on dialysis Code(s): N18.6 - END STAGE RENAL DISEASE; Z99.2 - DEPENDENCE ON RENAL DIALYSIS Status: Chronic (9) Hypertension Code(s): I10 - ESSENTIAL (PRIMARY) HYPERTENSION Status: Chronic Qualifiers: Hypertension type: essential hypertension Qualified Code(s): I10 - Essential (primary) hypertension - Plan Plan: Patient presenting with generalized aching, sore throat, and sneezing as well as chest tightness since Sunday after smoking outside in the cold. Has had a decreased appetite, hypoglycemic episodes at home and a persistent cough on deep inspiration. She is being admitted for management of the following: Chest tightness with elevated troponin Continue cardiac monitoring Trend troponins Tightness more likely associated with pulmonary edema CTA negative for PE Check Mg+ and TSH as well as lipid panel COVID testing pending Hypertensive urgency Monitor BP Resume antihypertensives once verified Pulmonary edema with known hx of ESRD Sats stable, 93-98% on RA Nephrology consult for dialysis Tobacco Abuse, ?COPD Resume home inhalers Educate: Tobacco cessation Anemia (no recent for comparison) Check stool for occult blood Iron studies Repeat H/H with AM labs Hyperlipidemia Resume statin Lipid panel in AM as mentioned above Type 2DM with hypoglycemic episodes due to decreased intake Accu-cheks Q4HR until tmrw AM, then ACHS if no hypoglycemic episodes overnight If continues with reduced intake, consider turning pump off and initiating ISS Hypoglycemia protocol ordered DVT Prophylaxis: Mechanical SCDS CODE STATUS FULL Case discussed with attending who agrees with plan as above.
[2020-07-27] MEDS ORDERED: Heparin 5,000 UNITS/ML VIAL SC SCH (21:00)
[2020-07-27] MEDS: cloNIDine 0.1 MG TAB PO PRN (21:23)
[2020-07-27 21:43] VITALS: BMI 30.2
[2020-07-27 22:28] LABS: CKMB 2.1 ng/mL (0-6.6)
[2020-07-28] MEDS: hydrALAZINE 20 MG/ML VIAL SLOW IVP PRN ×2 (00:23→15:24)
[2020-07-28] MEDS: cloNIDine 0.1 MG TAB PO PRN ×2 (03:21→16:56)
[2020-07-28 05:43] LABS: #Eosinphils 0.2 thou/uL (0.0-0.7); #Lymphocytes 1.5 thou/uL (1.20-3.40); #Monocytes 0.4 thou/uL (0.11-0.59); #Neutrophils 4.3 thou/uL (1.40-6.50); %Basophils 0.3 % (0.0-1.0); %Eosinophils 3.4 % (0.0-10.0); %Lymphocytes 23.6 % (21.0-51.0); %Monocytes 6.7 % (0.0-10.0); BUN (Urea Nitrogen) 33 mg/dL (9.8-20.1); Calc. Creatinine Clearance 12 mL/min (70-130); Calcium 8.9 mg/dL (7.8-10.44); Cardiac Risk 4.2 (Less than 4.5); Cholesterol 129 mg/dl (< 200 Desired); Glucose 287 mg/dL (70-105); HDL Cholesterol 31 mg/dL (>60 Neg Risk); Hemoglobin 8.7 g/dL (12.0-16.0); Iron 72 ug/dL (50-170); Iron Binding Capacity, Total 164 mcg/dL (265-497); Iron Binding Capacity, Total 165 mcg/dL (265-497); LDL Cholesterol, Calculated 61 mg/dL; Mean Corpuscular HGB CONC 33.5 g/dL (32.0-36.0); Mean Corpuscular Hemoglobin 32.8 pg (27.0-31.0); Mean Corpuscular Volume 98.1 fL (78.0-98.0); Platelet Count 142 thou/uL (130-400); RBC Distribution Width 13.7 % (11.5-14.5); Red Blood Cell (RBC) Count 2.66 mill/uL (4.20-5.40); Triglycerides 184 mg/dL (Less than 150); White Blood Cell (WBC) Count 6.5 thou/uL (4.8-10.8)
[2020-07-28 05:44] LABS: Anion Gap 17 mmol/L (10-20); Carbon Dioxide 35 mmol/L (22-29); Chloride 87 mmol/L (98-107); Potassium 3.7 mmol/L (3.5-5.1); Sodium 135 mmol/L (136-145)
[2020-07-28 06:17] LABS: SARS-CoV-2 MS2 Positive; SARS-CoV-2 N Gene Negative; SARS-CoV-2 S Gene Negative; SARS-CoV-2 by NAA Not Detected (NotDetected); SARS-CoV-2 orf1ab Negative
[2020-07-28 07:09] LABS: Ferritin 2755.7 ng/mL (10-291)
[2020-07-28] MEDS: Aspirin Chewable 81 MG TAB PO SCH (08:38)
[2020-07-28] MEDS ORDERED: EPOETIN ALFA-EPBX (ESRD) 4,000 UNIT/ML VIAL SC SCH (09:15)
--- NOTE | 2020-07-28 09:52 | CON ---
DATE OF CONSULTATION: 07/28/2020 HISTORY OF PRESENT ILLNESS: Ms. Pulido is a 54-year-old female with ESRD and was admitted for chest tightness. She is being ruled out for RI. A CT angio of the chest was done, and this was consistent with pulmonary edema. No report of any pulmonary embolism. There was also an incidental finding of a 6 mm left upper lobe pulmonary nodule, which again was recommended to be rechecked in 6 months. We are being consulted for maintenance hemodialysis. Today is her dialysis day. REVIEW OF SYSTEMS: Positive for chest pain. Mild shortness of breath. No syncopal episode. Positive for leg edema. No nausea, no vomiting. Occasional headache. MEDICATIONS: 1. Lantus 5 units subcu t.i.d. 2. Pravastatin 40 mg q.h.s. 3. Protonix 40 mg daily. 4. Escitalopram 10 mg daily. 5. Amitriptyline 50 mg q.h.s. 6. Clonidine 0.3 mg p.o. daily. 7. Albuterol oral inhaler two puffs t.i.d. PAST MEDICAL HISTORY: ESRD from diabetic nephropathy, type 2 diabetes mellitus, status post CHF, longstanding hypertension, depression, anxiety, and history of noncompliance. PAST SURGICAL HISTORY: Status post AV fistula placement, status post PD catheter placement and subsequent removal, status post cuffed hemodialysis catheter placement. FAMILY HISTORY: No family history of ESRD. SOCIAL HISTORY: The patient is . She has 3 children, originally from [place], [place], but currently lives in [place]. Currently, not working. Status post multiple blood transfusions. Currently smokes half a pack per day. No alcohol. No IV drug abuse. TRAUMA: None. IMMUNIZATIONS: Up to date. HOSPITALIZATIONS: Please see past medical history. ALLERGIES: NO KNOWN DRUG ALLERGIES. PHYSICAL EXAMINATION: VITAL SIGNS: Blood pressure 196/95, heart rate 79, respiratory rate 16, temperature 97.8, and O2 saturation 98%. GENERAL: Awake, alert, comfortable, not in overt distress. SKIN: Adequate turgor. HEENT: She has slightly pale conjunctivae. Anicteric sclerae. No neck mass. No carotid bruits. No JVD. CHEST: No deformities. LUNGS: Decreased breath sounds. HEART: Normal sinus rhythm. No murmur. No gallops. No rubs. ABDOMEN: Globular, soft, nontender. No masses. EXTREMITIES: Positive for edema. NEUROLOGICAL: Awake, oriented to 3 spheres. Moving all extremities. No tremors. No asterixis. No ataxia. LABORATORY DATA: On July 28, 2020, white count 6.5, hemoglobin 8.7. Sodium 135, potassium 3.7, chloride 87, carbon dioxide 35, BUN 33, creatinine 6.43, glucose 287, calcium 8.9. CT scan of the chest, no pulmonary embolism. Positive for CHF. ASSESSMENT AND PLAN: 1. End-stage renal disease, stable. We will continue current Sunday, Sunday, and Sunday hemodialysis regimen. I will attempt a 4.5 L fluid removal as tolerated by the patient. 2. Chest pain, being ruled out for myocardial infarction. 3. Hypertension. Continue current BP medications. 4. Anemia-start Epogen 7500 units subcu every week. 5. Shortness of breath-most likely from underlying congestive heart failure. Job ID: [id number]
[2020-07-28] MEDS ORDERED: cloNIDine 0.3 MG TAB PO PRN (16:52)
[2020-07-28] MEDS ORDERED: HumaLOG 300 UNITS/3 ML VIAL SC SCH (17:00)
--- NOTE | 2020-07-28 17:00 | PDOC.HOSPP ---
- Subjective Encounter Date: 07/28/20 Encounter Time: 16:59 Subjective: Patient seen for follow-up regarding chest pain. She reports chest pain is better. - Objective Vital Signs & Weight: Vital Signs (12 hours) Temp Pulse Resp BP BP Pulse Ox 07/28/20 15:24 76 214/98 H 07/28/20 12:28 98.2 F 76 15 215/93 H 97 07/28/20 11:03 98 07/28/20 08:00 97.8 F 79 16 196/95 H 98 07/28/20 05:23 176/78 H Weight Weight 165 lb I&O: 07/27/20 07/28/20 07/29/20 06:59 06:59 06:59 Intake Total 1000 480 Output Total 0 Balance 1000 480 Result Diagrams: 07/28/20 04:06 07/28/20 04:06 Additional Labs: Accuchecks 07/28/20 07/28/20 07/27/20 05:31 00:23 21:01 POC Glucose 284 H 298 H 364 H Labs and MAR reviewed by me EKG Reviewed by me: Yes (Telemetry shows normal sinus rhythm) Hospitalist ROS - Review of Systems Cardiovascular: reports: chest pain. denies: palpitations, orthopnea, paroxysmal noc. dyspnea, edema, light headedness Gastrointestinal: denies: nausea, vomiting, abdominal pain, diarrhea, constipation, melena, hematochezia - Medication Medications: Active Medications Generic Name Dose Route Start Last Admin Trade Name Freq PRN Reason Stop Dose Admin Aspirin 81 mg 07/28/20 09:00 07/28/20 08:38 Aspirin Chewable 81 Mg Tab PO 81 mg DAILY RONDA Administration Clonidine 0.1 mg 07/27/20 20:29 07/28/20 03:21 Clonidine 0.1 Mg Tab PO 0.1 mg Q4H PRN Administration SBP Greater Than 180 Epoetin Scotty-epbx 7,500 unit 07/28/20 09:15 07/28/20 12:14 Epoetin Scotty-Epbx (Esrd) 4,000 Unit/Ml Vial SC 7,500 unit Q7D RONDA Administration Hydralazine HCl 10 mg 07/28/20 00:07 07/28/20 15:24 Hydralazine 20 Mg/Ml Vial SLOW IVP 10 mg Q4H PRN Administration SBP Greater Than 180 - Exam General - other findings: Obese ENT: no oropharyngeal lesions Neck: supple Heart: RRR Respiratory: CTAB Gastrointestinal: soft, non-tender Skin: no rashes Psychiatric: normal affect, normal behavior Hosp A/P - Plan - Problem (1) chest pain Status: Acute (2) Hypertensive urgency Status: Acute (3) Shortness of breath Code(s): R06.02 - SHORTNESS OF BREATH Status: Acute (4) Anemia Code(s): D64.9 - ANEMIA, UNSPECIFIED Status: Acute (5) CAD (coronary artery disease) Code(s): I25.10 - ATHSCL HEART DISEASE OF [place] CORONARY ARTERY W/O ANG PCTRS Status: Acute (6) Hyperlipidemia Code(s): E78.5 - HYPERLIPIDEMIA, UNSPECIFIED Status: Chronic (7) DM2 (diabetes mellitus, type 2) Status: Chronic Qualifiers: Diabetes mellitus chcf insulin use: with chcf use Chronic kidney disease stage: on chronic dialysis (8) ESRD (end stage renal disease) on dialysis Code(s): N18.6 - END STAGE RENAL DISEASE; Z99.2 - DEPENDENCE ON RENAL DIALYSIS Status: Chronic (9) Hypertension Code(s): I10 - ESSENTIAL (PRIMARY) HYPERTENSION Status: Chronic Qualifiers: Hypertension type: essential hypertension Qualified Code(s): I10 - Essential (primary) hypertension - Plan Monitor on telemetry. Check stress test. Dialysis per nephrology service. COVID-19 test negative. Monitor vital signs and titrate antihypertensives as needed. Continue Accu-Cheks and insulin sliding scale.
[2020-07-28] MEDS ORDERED: Albuterol Sulfate 2.5 mg/3 ml Neb NEB PRN (17:39)
[2020-07-28] MEDS ORDERED: Amitriptyline HCl 25 MG TAB PO SCH (21:00)
[2020-07-28] MEDS ORDERED: Atorvastatin Calcium 10 MG TAB PO SCH (21:00)
--- NOTE | 2020-07-28 22:44 | PDOC.EVN ---
Event Note - Event Note Event Note: Low BG readings. Given amp D50, d/c'd scheduled insulin with meals. Accuchecks q4hrs. Give solumedrol 40mg x 1 dose now.
[2020-07-28] MEDS ORDERED: methylPREDNISolone Sod Succ 40 MG VIAL IVP SCH (23:00)
[2020-07-28] MEDS ORDERED: Lorazepam 1 MG TAB PO PRN (23:27)
[2020-07-29] MEDS: hydrALAZINE 20 MG/ML VIAL SLOW IVP PRN (01:51)
[2020-07-29] MEDS: cloNIDine 0.1 MG TAB PO PRN (01:51)
[2020-07-29 05:11] LABS: #Lymphocytes 0.5 thou/uL (1.20-3.40); #Monocytes 0.1 thou/uL (0.11-0.59); #Neutrophils 9.3 thou/uL (1.40-6.50); %Basophils 0.1 % (0.0-1.0); %Eosinophils 0.2 % (0.0-10.0); %Lymphocytes 5.4 % (21.0-51.0); %Monocytes 1.2 % (0.0-10.0); %Neutrophils 93.1 % (42.0-75.0); Hemoglobin 9.4 g/dL (12.0-16.0); Mean Corpuscular HGB CONC 33.1 g/dL (32.0-36.0); Mean Corpuscular Hemoglobin 32.4 pg (27.0-31.0); Mean Corpuscular Volume 97.9 fL (78.0-98.0); Mean Platelet Volume 9.7 fL (7.4-10.4); Platelet Count 158 thou/uL (130-400); RBC Distribution Width 13.7 % (11.5-14.5); Red Blood Cell (RBC) Count 2.89 mill/uL (4.20-5.40)
[2020-07-29 05:36] LABS: Anion Gap 15 mmol/L (10-20); BUN (Urea Nitrogen) 20 mg/dL (9.8-20.1); Calc. Creatinine Clearance 16 mL/min (70-130); Calcium 8.6 mg/dL (7.8-10.44); Carbon Dioxide 31 mmol/L (22-29); Chloride 93 mmol/L (98-107); Glucose 458 mg/dL (70-105); Potassium 4.4 mmol/L (3.5-5.1); Sodium 135 mmol/L (136-145)
[2020-07-29] MEDS ORDERED: Escitalopram Oxalate 20 mg Tablet PO SCH (09:00)
[2020-07-29] MEDS ORDERED: HumaLOG 300 UNITS/3 ML VIAL SC SCH (09:30)
[2020-07-29] MEDS: Aspirin Chewable 81 MG TAB PO SCH (10:00)
--- NOTE | 2020-07-29 11:26 | NM ---
EXAM: CARDIAC SPECT HISTORY: Chest pain, coronary artery disease, end-stage renal disease, hypertension, diabetes, dyslip idemia, smoker TECHNIQUE: A myocardial perfusion scan was performed using the single isotope 2 day protocol with shirin hnetium 99m sestamibi. [30 mCi] was injected intravenously for the rest exam and 32 mCifor the stress study. Pharmacologic stress with Lexiscan was monitored and interpreted by Dr. Evans FINDINGS: Homogeneous tracer distribution is seen in the myocardial segments on stress and rest image s without fixed or reversible defects. Gated SPECT LVEF: 56% Wall motion exam: Normal IMPRESSION: Normal myocardial perfusion scan
[2020-07-29 12:57] LABS: Glucose 694 mg/dL (70-105)
[2020-07-29] MEDS ORDERED: Insulin Glargine 10 UNITS in Pre-Filled Syringe 1 EACH SC SCH (13:00)
[2020-07-29] MEDS ORDERED: Regadenoson 0.4 MG/5 ML SYRINGE ONE (13:19)
--- NOTE | 2020-07-29 16:24 | PDOC.DS.DS ---
Provider - Provider Date of Admission: 07/29/20 09:58 Date of Discharge: 07/29/20 Admitting Provider: Robert Mendoza MD Primary Care Physician: Brina Anthony MD Course - Hospital Course Hospital Course: Discharge diagnosis: 1. Chest pain 2. Chest pain most likely secondary to musculoskeletal etiology 3. Hypoglycemic episode 4. Hyponatremia 5. COVID-19 PCR test negative Hospital course: Patient is a pleasant 54-year-old lady who was admitted to the hospital on July 27, [address] angiogram of the chest showed findings consistent with pulmonary edema. She also had extensive coronary arterial calcification and no evidence for pulmonary arterial thromboembolism. She had a 6 mm left upper lobe pulmonary nodule for which 6-month follow-up was advised. She was seen by nephrology service and underwent hemodialysis. She also had nuclear stress test, which was normal myocardial perfusion scan. 2D echoc ardiogram showed left ventricle ejection fraction of 55 to 60%. On the night of July 28 she had a hypoglycemic episode for which she received intravenous steroids, with resultant hyperglycemia. She received extra doses of insulin to manage the hyperglycemia and her insulin pump was resumed. She is advised to follow-up with solar installer pv as outpatient for management of insulin pump. Many thanks for allowing me to participate in your patient's care. Please feel free to contact me with any questions or concerns. Discharge destination: Home Total amount of time spent coordinating this discharge: 32 minutes Resuscitation Status: 07/27/20 19:39 Resuscitation Status Routine Co-Sign Provider: Resuscitation Status: FULL: Full Resuscitation - Labs Lab Results: 07/29/20 04:28 07/29/20 12:27 Abnormal Lab Results - Last 48 hrs 07/27/20 18:15: Troponin I 0.153 H 07/27/20 21:28: Troponin I 0.123 H 07/27/20 21:28: B-Natriuretic Peptide 820.9 H 07/28/20 04:06: Sodium 135 L, Chloride 87 L, Carbon Dioxide 35 H, BUN 33 H, Creatinine 6.43 H, TIBC 165 L, Triglycerides 184 H 07/28/20 04:06: RBC 2.66 L, Hgb 8.7 L, Hct 26.1 L, MCV 98.1 H, MCH 32.8 H 07/28/20 04:06: TIBC 164 L 07/28/20 04:06: Ferritin 2755.70 H, Vitamin B12 962 H 07/29/20 04:28: Sodium 135 L, Chloride 93 L, Carbon Dioxide 31 H, Creatinine 4.65 H 07/29/20 04:28: RBC 2.89 L, Hgb 9.4 L, Hct 28.3 L, MCH 32.4 H, Neutrophils % 93.1 H, Lymphocytes % 5.4 L, Neutrophils # 9.3 H, Lymphocytes # 0.5 L, Monocytes # 0.1 L - Physical Exam Vitals: Vital Signs (12 hours) Temp Pulse Resp BP Pulse Ox 07/29/20 12:00 97.8 F 92 18 186/79 H 100 07/29/20 07:54 98.1 F 77 18 133/62 97 Weight Weight 163 lb 9.328 oz Physical Exam: The patient was seen and examined on the day of discharge. Patient denies chest pain or shortness of breath. Vital signs are stable. S1 and S2 are heard. Lungs are clear to auscultation bilaterally. Plan - Discharge Medications Home Medications: Medication Instructions Recorded Confirmed Type Amitriptyline HCl 50 mg PO HS 08/21/15 07/27/20 History Escitalopram Oxalate 20 mg PO DAILY 08/21/15 07/27/20 History Pravastatin Sodium 40 mg PO HS 08/21/15 07/27/20 History cloNIDine HCl 0.1 tab PO TID PRN 08/21/15 07/27/20 History Pantoprazole [Protonix] 40 mg PO DAILY 02/14/16 07/27/20 History HumaLOG [HumaLOG Vial] 5 unit SC TID-WM 12/18/17 07/27/20 History Lactulose 30 ml PO BID PRN 03/24/19 07/27/20 History Albuterol Sulfate [Ventolin Hfa] 2 puff INH Q4HR PRN 06/08/19 07/27/20 History Allergies: No Known Allergies Allergy (Verified 06/07/19 23:15) - Discharge Instructions Discharge Instructions:: Follow-up with your solar installer pv as outpatient for management of insulin pump. Activity:: Activity as Tolerated Nourishment:: Diabetic Diet, Heart Healthy Diet, Renal Diet - Follow up Plan Referrals: Brina Anthony MD [Primary Care Provider] - 3 Days Disposition: HOME Quality - Care Measures CORE MEASURES:: N/A
[2020-07-29 16:35] VITALS: BP 157/67; TEMP 99
--- NOTE | 2020-07-31 11:15 | EKG ---
Test Reason : Blood Pressure : / mmHG Vent. Rate : 078 BPM Atrial Rate : 078 BPM P-R Int : 138 ms QRS Dur : 138 ms QT Int : 458 ms P-R-T Axes : 031 -23 126 degrees QTc Int : 522 ms Normal sinus rhythm Left bundle branch block Abnormal ECG Confirmed by MARK THOMAS ([id number]), desk editor JULIÁN SAEED ([id number]) on 07/31/2020 11:15:17 AM Referred By: Confirmed By:MARK THOMAS
== END 2020-07-29 20:26 | disposition home or self-care (01) | DRG 313 ==
LOC: ERS 15:07 → 2NO 18:03 → OBSVTOIN 07-29 09:58
PROVIDERS: ADMIT Internal Medicine; ATTEND Internal Medicine
PROC: 5A1D70Z Performance of Urinary Filtration, Intermittent, Less than 6 Hours Per Day (ICD-10-PCS; principal; 2020-07-28)
DX: R07.89 Other chest pain (principal); N18.6 End stage renal disease; Z20.822 Contact with and (suspected) exposure to COVID-19; I16.1 Hypertensive emergency; I12.0 Hypertensive chronic kidney disease with stage 5 chronic kidney disease or end stage renal disease; E87.1 Hypo-osmolality and hyponatremia; F17.210 Nicotine dependence, cigarettes, uncomplicated; E78.5 Hyperlipidemia, unspecified; H54.40 Blindness, one eye, unspecified eye; E11.22 Type 2 diabetes mellitus with diabetic chronic kidney disease; E11.649 Type 2 diabetes mellitus with hypoglycemia without coma; I25.10 Atherosclerotic heart disease of native coronary artery without angina pectoris; D63.1 Anemia in chronic kidney disease; E78.00 Pure hypercholesterolemia, unspecified; Z99.2 Dependence on renal dialysis; Z79.4 Long term (current) use of insulin; Z79.51 Long term (current) use of inhaled steroids; Z79.899 Other long term (current) drug therapy; Z90.710 Acquired absence of both cervix and uterus
CPT/HCPCS: 36415; 36416; 71275; 78452; 80048; 80053; 80061; 82553; 82607; 82728; 82746; 83540; 83550; 83735; 83880; 84443; 84484; 85025; 87635; 90935; 93005; 93017; 93306; 94760; 96372; 96374; 96375; 96376; A9500; G0257; G0378; J0360; J1815; J2270; J2785; J2920; Q5105; Q9967; U0003; U0005

== ENCOUNTER 2020-09-04 15:15 | Inpatient (IN) | payer MEDICARE, BC ==
[2020-09-04 16:16] LABS: #Eosinphils 0.1 thou/uL (0.0-0.7); #Lymphocytes 1.3 thou/uL (1.20-3.40); #Monocytes 0.5 thou/uL (0.11-0.59); #Neutrophils 4.8 thou/uL (1.40-6.50); %Basophils 0.4 % (0.0-1.0); %Eosinophils 1.3 % (0.0-10.0); %Lymphocytes 19.1 % (21.0-51.0); %Monocytes 7.5 % (0.0-10.0); %Neutrophils 71.7 % (42.0-75.0); Hemoglobin 8.5 g/dL (12.0-16.0); Mean Corpuscular HGB CONC 33.9 g/dL (32.0-36.0); Mean Platelet Volume 8.7 fL (7.4-10.4); Platelet Count 166 thou/uL (130-400); Red Blood Cell (RBC) Count 2.51 mill/uL (4.20-5.40); White Blood Cell (WBC) Count 6.6 thou/uL (4.8-10.8)
[2020-09-04 16:27] LABS: ALT (SGPT) 29 U/L (8-55); AST (SGOT) 28 U/L (5-34); Albumin 3.3 g/dL (3.5-5.0); Alkaline Phosphatase 193 U/L (40-110); BUN (Urea Nitrogen) 21 mg/dL (9.8-20.1); Bilirubin, Total 0.5 mg/dL (0.2-1.2); Calc. Creatinine Clearance 0 mL/min (70-130); Calcium 7.8 mg/dL (7.8-10.44); Globulin 2.8 g/dL (2.4-3.5); Glucose 476 mg/dL (70-105); Protein, Total 6.1 g/dL (6.0-8.3)
[2020-09-04 16:36] LABS: Anion Gap 18 mmol/L (10-20); Chloride 83 mmol/L (98-107); Potassium 3.3 mmol/L (3.5-5.1); Sodium 141 mmol/L (136-145)
[2020-09-04 16:47] LABS: CKMB 4.2 ng/mL (0-6.6)
[2020-09-04 16:56] LABS: Carbon Dioxide 43 mmol/L (22-29)
[2020-09-04] MEDS ORDERED: Albuterol 200 PUFF (6.7GM INHALER) ONE (17:07)
[2020-09-04] MEDS ORDERED: Azithromycin 250 MG TAB ONE (18:04)
[2020-09-04] MEDS ORDERED: Cefepime 2 GM VIAL ONE (18:04)
[2020-09-04 18:30] LABS: SARS-CoV-2 NAA Rapid Test Not Detected (NotDetected)
[2020-09-04] MEDS ORDERED: Dextrose 5% in Water 1,000 ML IV PRN (19:18)
[2020-09-04] MEDS ORDERED: Dextrose 50% Abboject 50 ML SYRINGE SLOW IVP PRN (19:18)
[2020-09-04] MEDS ORDERED: Benzonatate 100 MG CAP PO PRN (19:18)
[2020-09-04] MEDS ORDERED: Guaifenesin DM 100-10/5 ML UDCUP PO PRN (19:18)
[2020-09-04] MEDS ORDERED: HumaLOG 300 UNITS/3 ML VIAL SC PRN ×2 (19:18)
[2020-09-04] MEDS ORDERED: Nitroglycerin 2% Ointment 1 INCH/1 GM Packet ONE (19:37)
[2020-09-04 19:44] LABS: Troponin I 0.162 ng/mL (< 0.028)
[2020-09-04] MEDS ORDERED: Ondansetron ODT 4 MG TAB PO PRN (20:29)
[2020-09-04] MEDS ORDERED: Magnesium 2 GM/50 ML 2 GM in Premix Bag 1 BAG IVPB SCH (21:15)
[2020-09-04] MEDS ORDERED: Famotidine 20 MG TAB ONE (21:58)
[2020-09-04] MEDS ORDERED: Furosemide 20 MG/2 ML VIAL ONE (21:58)
[2020-09-04] MEDS ORDERED: Vancomycin HCl 1.5 GM in Sodium Chloride 0.9% 250 ML 300 ML IVPB SCH (22:00)
[2020-09-04] MEDS: Famotidine 20 MG TAB PO SCH (22:08)
[2020-09-04 22:28] LABS: Troponin I 0.171 ng/mL (< 0.028)
[2020-09-04] MEDS: Atorvastatin Calcium 10 MG TAB PO SCH (23:27)
[2020-09-05] MEDS: Albuterol 200 PUFF (6.7GM INHALER) INH PRN ×2 (01:01→06:06)
[2020-09-05 03:13] LABS: #Eosinphils 0.3 thou/uL (0.0-0.7); #Lymphocytes 1.3 thou/uL (1.20-3.40); #Monocytes 0.6 thou/uL (0.11-0.59); #Neutrophils 5.4 thou/uL (1.40-6.50); %Basophils 0.6 % (0.0-1.0); %Lymphocytes 16.6 % (21.0-51.0); %Monocytes 7.6 % (0.0-10.0); %Neutrophils 71.2 % (42.0-75.0); Hemoglobin 8.5 g/dL (12.0-16.0); Mean Corpuscular HGB CONC 34.2 g/dL (32.0-36.0); Mean Corpuscular Hemoglobin 34.1 pg (27.0-31.0); Mean Corpuscular Volume 99.7 fL (78.0-98.0); Mean Platelet Volume 8.6 fL (7.4-10.4); Platelet Count 160 thou/uL (130-400); RBC Distribution Width 15.1 % (11.5-14.5); White Blood Cell (WBC) Count 7.6 thou/uL (4.8-10.8)
[2020-09-05] MEDS ORDERED: Acetaminophen 325 MG TAB ONE (03:21)
[2020-09-05] MEDS ORDERED: cloNIDine 0.1 MG TAB ONE (03:21)
[2020-09-05] MEDS: cloNIDine 0.1 MG TAB PO PRN ×3 (03:23→23:49)
[2020-09-05] MEDS: Acetaminophen 325 MG TAB PO PRN (03:23)
[2020-09-05 03:30] LABS: BUN (Urea Nitrogen) 23 mg/dL (9.8-20.1); Calc. Creatinine Clearance 0 mL/min (70-130); Calcium 8.1 mg/dL (7.8-10.44); Glucose 306 mg/dL (70-105)
[2020-09-05 03:39] LABS: Anion Gap 20 mmol/L (10-20); Carbon Dioxide 37 mmol/L (22-29); Chloride 84 mmol/L (98-107); Potassium 3.3 mmol/L (3.5-5.1); Sodium 138 mmol/L (136-145)
[2020-09-05] MEDS ORDERED: hydrALAZINE 20 MG/ML VIAL ONE (04:58)
[2020-09-05] MEDS ORDERED: hydrALAZINE 20 MG/ML VIAL SLOW IVP SCH (05:00)
[2020-09-05 08:25] LABS: Vancomycin, Random 23.1 ug/mL (See Comment)
[2020-09-05] MEDS: HumaLOG 300 UNITS/3 ML VIAL SC SCH ×3 (08:35→18:14)
[2020-09-05] MEDS ORDERED: Escitalopram Oxalate 10 mg Tablet PO SCH (09:00)
[2020-09-05] MEDS ORDERED: Vancomycin 1 GM in Premix Bag 1 BAG IVPB SCH (09:00)
[2020-09-05] MEDS ORDERED: VANCOMYCIN 1.25 GM/250 ML BAG 1.25 GM in Premix Bag 1 BAG IVPB SCH (09:00)
[2020-09-05] MEDS ORDERED: Vancomycin HCl 500 MG in Sodium Chloride 0.9% 100 ML IVPB SCH (09:00)
[2020-09-05] MEDS ORDERED: Vancomycin HCl 750 MG in Sodium Chloride 0.9% 250 ML 250 ML IVPB SCH (09:00)
[2020-09-05] MEDS ORDERED: HOLD VANCOMYCIN FOR LEVEL >20 FS SCH (09:00)
[2020-09-05] MEDS: Cefepime 0.5 GM in Sodium Chloride 0.9% 100 ML IVPB SCH (18:21)
[2020-09-05 19:48] VITALS: BMI 31.7
[2020-09-05] MEDS: Famotidine 20 MG TAB PO SCH (20:34)
[2020-09-05] MEDS: Atorvastatin Calcium 10 MG TAB PO SCH (20:34)
[2020-09-06] MEDS ORDERED: hydrALAZINE 20 MG/ML VIAL SLOW IVP SCH (03:15)
[2020-09-06] MEDS ORDERED: cloNIDine 0.1 MG TAB PO SCH (09:00)
[2020-09-06 09:19] LABS: Vancomycin, Random 15.8 ug/mL (See Comment)
[2020-09-06 09:21] LABS: BUN (Urea Nitrogen) 28 mg/dL (9.8-20.1); Calc. Creatinine Clearance 14 mL/min (70-130); Calcium 8.4 mg/dL (7.8-10.44); Glucose 209 mg/dL (70-105)
[2020-09-06 09:27] LABS: #Eosinphils 0.4 thou/uL (0.0-0.7); #Lymphocytes 0.9 thou/uL (1.20-3.40); #Monocytes 0.4 thou/uL (0.11-0.59); #Neutrophils 5.6 thou/uL (1.40-6.50); %Basophils 0.2 % (0.0-1.0); %Eosinophils 4.9 % (0.0-10.0); %Lymphocytes 12.5 % (21.0-51.0); %Monocytes 5.6 % (0.0-10.0); %Neutrophils 76.9 % (42.0-75.0); Hemoglobin 8.6 g/dL (12.0-16.0); Mean Corpuscular HGB CONC 33.5 g/dL (32.0-36.0); Mean Platelet Volume 8.8 fL (7.4-10.4); Platelet Count 149 thou/uL (130-400); Red Blood Cell (RBC) Count 2.54 mill/uL (4.20-5.40); White Blood Cell (WBC) Count 7.3 thou/uL (4.8-10.8)
[2020-09-06] MEDS: hydrALAZINE 20 MG/ML VIAL SLOW IVP PRN ×2 (11:58→18:55)
[2020-09-06 12:04] LABS: Chloride 88 mmol/L (98-107); Potassium 3.3 mmol/L (3.5-5.1); Sodium 137 mmol/L (136-145)
[2020-09-06 12:06] LABS: Anion Gap 17 mmol/L (10-20); Carbon Dioxide 35 mmol/L (22-29)
[2020-09-06] MEDS: Acetaminophen 325 MG TAB PO PRN (14:12)
[2020-09-06] MEDS ORDERED: hydrALAZINE 25 MG TAB PO SCH (16:45)
[2020-09-06] MEDS: Cefepime 0.5 GM in Sodium Chloride 0.9% 100 ML IVPB SCH (19:53)
[2020-09-06] MEDS: hydrALAZINE 25 MG TAB PO SCH (20:58)
[2020-09-06] MEDS: Famotidine 20 MG TAB PO SCH (20:58)
[2020-09-06] MEDS: traMADol HCl 50 MG TAB PO PRN (20:58)
[2020-09-06] MEDS: Atorvastatin Calcium 10 MG TAB PO SCH (20:58)
[2020-09-07] MEDS: traMADol HCl 50 MG TAB PO PRN ×3 (04:23→16:29)
[2020-09-07] MEDS: hydrALAZINE 25 MG TAB PO SCH ×3 (09:40→21:23)
[2020-09-07] MEDS: Cefepime 0.5 GM in Sodium Chloride 0.9% 100 ML IVPB SCH (12:09)
[2020-09-07] MEDS: hydrALAZINE 20 MG/ML VIAL SLOW IVP PRN ×2 (16:27→22:48)
[2020-09-07] MEDS ORDERED: Minoxidil 2.5 MG TAB PO SCH (17:45)
[2020-09-07] MEDS: Famotidine 20 MG TAB PO SCH (21:22)
[2020-09-07] MEDS: Atorvastatin Calcium 10 MG TAB PO SCH (21:22)
[2020-09-08] MEDS: traMADol HCl 50 MG TAB PO PRN ×2 (00:14→14:47)
[2020-09-08] MEDS: Acetaminophen 325 MG TAB PO PRN ×2 (00:17→14:46)
[2020-09-08] MEDS: hydrALAZINE 20 MG/ML VIAL SLOW IVP PRN (03:59)
[2020-09-08] MEDS ORDERED: Epoetin (ESRD) 20,000 UNITS/ML SC SCH (08:45)
[2020-09-08] MEDS ORDERED: Losartan 25 MG TAB PO SCH (09:00)
[2020-09-08] MEDS: hydrALAZINE 25 MG TAB PO SCH ×2 (10:40→14:35)
[2020-09-08] MEDS ORDERED: EPOETIN ALFA-EPBX (ESRD) 4,000 UNIT/ML VIAL SC SCH (12:00)
[2020-09-08] MEDS: Cefepime 0.5 GM in Sodium Chloride 0.9% 100 ML IVPB SCH (14:36)
[2020-09-08 17:25] VITALS: BP 151/61; TEMP 98.8
[2020-09-08] MEDS ORDERED: Minoxidil 2.5 MG TAB PO SCH (21:00)
== END 2020-09-08 19:15 | disposition home or self-care (01) | DRG 640 ==
LOC: ERS 15:15 → ERHOLD 18:39 → 3SE 09-05 11:54
PROVIDERS: ADMIT Internal Medicine; ATTEND Internal Medicine
PROC: 5A1D70Z Performance of Urinary Filtration, Intermittent, Less than 6 Hours Per Day (ICD-10-PCS; principal; 2020-09-04)
DX: E87.70 Fluid overload, unspecified (principal); J96.01 Acute respiratory failure with hypoxia; J18.9 Pneumonia, unspecified organism; N18.6 End stage renal disease; I12.0 Hypertensive chronic kidney disease with stage 5 chronic kidney disease or end stage renal disease; J81.1 Chronic pulmonary edema; Z20.822 Contact with and (suspected) exposure to COVID-19; E87.6 Hypokalemia; D63.1 Anemia in chronic kidney disease; E78.5 Hyperlipidemia, unspecified; M54.9 Dorsalgia, unspecified; G89.29 Other chronic pain; E78.00 Pure hypercholesterolemia, unspecified; F17.210 Nicotine dependence, cigarettes, uncomplicated; F32.9 Major depressive disorder, single episode, unspecified; Z96.41 Presence of insulin pump (external) (internal); Z99.2 Dependence on renal dialysis; Z90.710 Acquired absence of both cervix and uterus; Z79.4 Long term (current) use of insulin; Z79.899 Other long term (current) drug therapy
CPT/HCPCS: 0240U; 36415; 36416; 71045; 71046; 71250; 80048; 80053; 80202; 82553; 83735; 83880; 84484; 85025; 90935; 93005; 96365; G0257; J0360; J0692; J1940; J3370; J3475; J3490; J7050; Q5105

== ENCOUNTER 2020-11-02 10:20 | Emergency (ER) | payer MEDICARE, BC ==
[2020-11-02] MEDS ORDERED: Ketorolac Tromethamine 30 MG/ML VIAL ONE (12:44)
== END 2020-11-02 14:01 | disposition home or self-care (01) ==
LOC: ERS 10:20
DX: M54.6 Pain in thoracic spine (principal); M54.5 Low back pain; E78.5 Hyperlipidemia, unspecified; E78.00 Pure hypercholesterolemia, unspecified; I12.0 Hypertensive chronic kidney disease with stage 5 chronic kidney disease or end stage renal disease; N18.6 End stage renal disease; F17.210 Nicotine dependence, cigarettes, uncomplicated; Z99.2 Dependence on renal dialysis; W18.11XA Fall from or off toilet without subsequent striking against object, initial encounter
CPT/HCPCS: 72040; 72072; 72100; 96372; J1885

== ENCOUNTER 2020-11-09 14:46 | Emergency (ER) | payer MEDICARE, BC ==
[2020-11-09 17:30] LABS: #Eosinphils 0.2 thou/uL (0.0-0.7); #Lymphocytes 1.3 thou/uL (1.20-3.40); #Monocytes 0.4 thou/uL (0.11-0.59); #Neutrophils 5.2 thou/uL (1.40-6.50); %Basophils 0.7 % (0.0-1.0); %Eosinophils 2.6 % (0.0-10.0); %Lymphocytes 18.7 % (21.0-51.0); %Monocytes 6.1 % (0.0-10.0); %Neutrophils 71.9 % (42.0-75.0); Hemoglobin 9.1 g/dL (12.0-16.0); Mean Corpuscular HGB CONC 32.1 g/dL (32.0-36.0); Mean Corpuscular Hemoglobin 30.5 pg (27.0-31.0); Mean Corpuscular Volume 95.2 fL (78.0-98.0); Mean Platelet Volume 8.3 fL (7.4-10.4); Platelet Count 169 thou/uL (130-400); RBC Distribution Width 15.5 % (11.5-14.5); Red Blood Cell (RBC) Count 2.98 mill/uL (4.20-5.40); White Blood Cell (WBC) Count 7.2 thou/uL (4.8-10.8)
[2020-11-09 17:52] LABS: ALT (SGPT) 45 U/L (8-55); AST (SGOT) 41 U/L (5-34); Albumin 3.3 g/dL (3.5-5.0); Alkaline Phosphatase 301 U/L (40-110); BUN (Urea Nitrogen) 67 mg/dL (9.8-20.1); Bilirubin, Total 0.5 mg/dL (0.2-1.2); Calc. Creatinine Clearance 0 mL/min (70-130); Calcium 8.4 mg/dL (7.8-10.44); Globulin 3.7 g/dL (2.4-3.5); Glucose 96 mg/dL (70-105)
[2020-11-09 18:01] LABS: Anion Gap 21 mmol/L (10-20); Chloride 78 mmol/L (98-107); Potassium 4.4 mmol/L (3.5-5.1); Sodium 141 mmol/L (136-145)
[2020-11-09 18:05] LABS: Carbon Dioxide 46 mmol/L (22-29)
[2020-11-09] MEDS ORDERED: cloNIDine 0.1 MG TAB ONE (19:05)
== END 2020-11-09 23:18 | disposition home or self-care (01) ==
LOC: ERS 14:46
DX: I12.0 Hypertensive chronic kidney disease with stage 5 chronic kidney disease or end stage renal disease (principal); N18.6 End stage renal disease; R09.02 Hypoxemia; E78.5 Hyperlipidemia, unspecified; E78.00 Pure hypercholesterolemia, unspecified; F17.210 Nicotine dependence, cigarettes, uncomplicated; Z99.2 Dependence on renal dialysis
CPT/HCPCS: 36415; 80053; 85025; 90935; G0257

== ENCOUNTER 2020-12-14 20:24 | Inpatient (IN) | payer MEDICARE, BC ==
[2020-12-14 21:30] LABS: #Eosinphils 0.1 thou/uL (0.0-0.7); #Lymphocytes 1.4 thou/uL (1.20-3.40); #Monocytes 0.6 thou/uL (0.11-0.59); #Neutrophils 5.8 thou/uL (1.40-6.50); %Basophils 0.4 % (0.0-1.0); %Eosinophils 1.3 % (0.0-10.0); %Lymphocytes 17.1 % (21.0-51.0); %Monocytes 7.8 % (0.0-10.0); %Neutrophils 73.4 % (42.0-75.0); Hemoglobin 8.9 g/dL (12.0-16.0); Mean Corpuscular HGB CONC 32.5 g/dL (32.0-36.0); Mean Corpuscular Hemoglobin 31.3 pg (27.0-31.0); Mean Corpuscular Volume 96.5 fL (78.0-98.0); Mean Platelet Volume 8.8 fL (7.4-10.4); Platelet Count 170 thou/uL (130-400); RBC Distribution Width 17.1 % (11.5-14.5); Red Blood Cell (RBC) Count 2.83 mill/uL (4.20-5.40); White Blood Cell (WBC) Count 7.9 thou/uL (4.8-10.8)
[2020-12-14 21:49] LABS: Phosphorus 2.2 mg/dL (2.3-4.7)
[2020-12-14 21:50] LABS: ALT (SGPT) 56 U/L (8-55); AST (SGOT) 57 U/L (5-34); Albumin 3.5 g/dL (3.5-5.0); Alkaline Phosphatase 313 U/L (40-110); BUN (Urea Nitrogen) 30 mg/dL (9.8-20.1); Bilirubin, Total 0.7 mg/dL (0.2-1.2); Calc. Creatinine Clearance 0 mL/min (70-130); Calcium 8.8 mg/dL (7.8-10.44); Globulin 3.6 g/dL (2.4-3.5); Glucose 114 mg/dL (70-105); Magnesium 2.2 mg/dL (1.6-2.6); Protein, Total 7.1 g/dL (6.0-8.3)
[2020-12-14 21:55] LABS: Troponin I 0.238 ng/mL (< 0.028)
[2020-12-14 22:00] LABS: Anion Gap 23 mmol/L (10-20); Chloride 81 mmol/L (98-107); Potassium 3.9 mmol/L (3.5-5.1); Sodium 145 mmol/L (136-145)
[2020-12-14 22:05] LABS: Carbon Dioxide 45 mmol/L (22-29)
[2020-12-14 23:12] LABS: SARS-CoV-2 NAA Rapid Test Not Detected (NotDetected)
[2020-12-15] MEDS ORDERED: hydrALAZINE 20 MG/ML VIAL SLOW IVP PRN (00:01)
[2020-12-15] MEDS ORDERED: Acetaminophen 325 MG TAB PO PRN (00:15)
[2020-12-15] MEDS ORDERED: hydrALAZINE 20 MG/ML VIAL ONE (00:41)
[2020-12-15 01:06] LABS: Troponin I 0.225 ng/mL (< 0.028)
[2020-12-15 02:06] VITALS: BMI 31.4
[2020-12-15 03:43] LABS: Troponin I 0.232 ng/mL (< 0.028)
[2020-12-15] MEDS ORDERED: Dextrose 50% Abboject 50 ML SYRINGE SLOW IVP PRN (04:18)
[2020-12-15] MEDS ORDERED: Insulin Regular 300 UNITS/3 ML VIAL SC PRN (04:18)
[2020-12-15] MEDS ORDERED: HumaLOG 300 UNITS/3 ML VIAL SC PRN (04:18)
[2020-12-15] MEDS ORDERED: Ondansetron PF 4 MG/2 ML Vial IVP PRN (04:18)
[2020-12-15] MEDS ORDERED: Dextrose 5% in Water 1,000 ML IV PRN (04:18)
[2020-12-15] MEDS ORDERED: Nitroglycerin 0.4 MG TAB (25 Tab Bottle) SL PRN (04:18)
[2020-12-15] MEDS ORDERED: Cepastat Lozenges 1 LOZ PO PRN (04:44)
[2020-12-15 05:57] LABS: Cardiac Risk 3.4 (Less than 4.5)
[2020-12-15 07:15] LABS: Hemoglobin A1c 6.3 % (4.0-6.0)
[2020-12-15] MEDS: Heparin 5,000 UNITS/ML VIAL SC SCH ×3 (07:40→20:22)
[2020-12-15] MEDS ORDERED: Epoetin (ESRD) 20,000 UNITS/ML SC SCH (08:45)
[2020-12-15] MEDS ORDERED: EPOETIN ALFA-EPBX (ESRD) 4,000 UNIT/ML VIAL SC SCH (12:00)
[2020-12-15] MEDS ORDERED: Amlodipine 10 MG TAB PO SCH (14:15)
[2020-12-15] MEDS: cloNIDine 0.1 MG TAB PO PRN ×2 (15:43→21:58)
[2020-12-15] MEDS: Losartan 25 MG TAB PO SCH (20:22)
[2020-12-15] MEDS: Benzonatate 100 MG CAP PO PRN (20:23)
[2020-12-15] MEDS ORDERED: cloNIDine 0.1 MG TAB PO PRN (21:05)
[2020-12-16 05:10] LABS: #Eosinphils 0.2 thou/uL (0.0-0.7); #Lymphocytes 0.9 thou/uL (1.20-3.40); #Monocytes 0.5 thou/uL (0.11-0.59); #Neutrophils 4.4 thou/uL (1.40-6.50); %Basophils 0.6 % (0.0-1.0); %Eosinophils 3.5 % (0.0-10.0); %Lymphocytes 15.1 % (21.0-51.0); %Monocytes 7.6 % (0.0-10.0); %Neutrophils 73.1 % (42.0-75.0); Hemoglobin 8.7 g/dL (12.0-16.0); Mean Corpuscular HGB CONC 31.7 g/dL (32.0-36.0); Mean Corpuscular Volume 97.8 fL (78.0-98.0); Mean Platelet Volume 9.2 fL (7.4-10.4); Platelet Count 152 thou/uL (130-400); RBC Distribution Width 17.3 % (11.5-14.5); Red Blood Cell (RBC) Count 2.82 mill/uL (4.20-5.40)
[2020-12-16 05:36] LABS: BUN (Urea Nitrogen) 15 mg/dL (9.8-20.1); Calc. Creatinine Clearance 21 mL/min (70-130); Calcium 8.4 mg/dL (7.8-10.44); Cardiac Risk 3.4 (Less than 4.5); Cholesterol 114 mg/dl (< 200 Desired); Glucose 159 mg/dL (70-105); HDL Cholesterol 34 mg/dL (>60 Neg Risk); LDL Cholesterol, Calculated 65 mg/dL; Triglycerides 74 mg/dL (Less than 150)
[2020-12-16 05:45] LABS: Anion Gap 19 mmol/L (10-20); Carbon Dioxide 37 mmol/L (22-29); Chloride 89 mmol/L (98-107); Potassium 4.8 mmol/L (3.5-5.1); Sodium 140 mmol/L (136-145)
[2020-12-16] MEDS ORDERED: Amlodipine 5 MG TAB PO SCH (09:00)
[2020-12-16] MEDS: Amlodipine 10 MG TAB PO SCH (12:30)
[2020-12-16] MEDS: Escitalopram Oxalate 10 mg Tablet PO SCH (12:31)
[2020-12-16] MEDS: Heparin 5,000 UNITS/ML VIAL SC SCH ×3 (12:32→20:27)
[2020-12-16] MEDS: Benzonatate 100 MG CAP PO PRN ×2 (14:02→18:39)
[2020-12-16] MEDS: cloNIDine 0.1 MG TAB PO PRN (16:01)
[2020-12-16] MEDS ORDERED: hydrALAZINE 25 MG TAB PO SCH (17:45)
[2020-12-16] MEDS: Losartan 25 MG TAB PO SCH (20:25)
[2020-12-16] MEDS: hydrALAZINE 25 MG TAB PO SCH (20:27)
[2020-12-16] MEDS ORDERED: Atorvastatin Calcium 10 MG TAB PO SCH (21:00)
[2020-12-17] MEDS: HYDROcodone/Acetaminophen 5/325 mg Tablet PO PRN ×2 (01:16→14:49)
[2020-12-17] MEDS: Escitalopram Oxalate 10 mg Tablet PO SCH (12:39)
[2020-12-17] MEDS: hydrALAZINE 25 MG TAB PO SCH ×2 (12:39→16:36)
[2020-12-17] MEDS: Amlodipine 10 MG TAB PO SCH (12:40)
[2020-12-17] MEDS: Heparin 5,000 UNITS/ML VIAL SC SCH ×2 (12:40→16:36)
[2020-12-17 15:54] VITALS: BP 157/84; TEMP 98.1
== END 2020-12-17 19:49 | disposition home or self-care (01) | DRG 640 ==
LOC: ERS 20:24 → ERHOLD 22:30 → 2SE 12-15 01:46
PROVIDERS: ADMIT Internal Medicine; ATTEND Internal Medicine
PROC: 5A1D70Z Performance of Urinary Filtration, Intermittent, Less than 6 Hours Per Day (ICD-10-PCS; principal; 2020-12-15)
DX: E87.70 Fluid overload, unspecified (principal); N18.6 End stage renal disease; I50.31 Acute diastolic (congestive) heart failure; I16.1 Hypertensive emergency; I11.0 Hypertensive heart disease with heart failure; Z20.822 Contact with and (suspected) exposure to COVID-19; E11.22 Type 2 diabetes mellitus with diabetic chronic kidney disease; R77.8 Other specified abnormalities of plasma proteins; E78.5 Hyperlipidemia, unspecified; E78.00 Pure hypercholesterolemia, unspecified; F17.210 Nicotine dependence, cigarettes, uncomplicated; D63.1 Anemia in chronic kidney disease; F32.9 Major depressive disorder, single episode, unspecified; I25.10 Atherosclerotic heart disease of native coronary artery without angina pectoris; F41.9 Anxiety disorder, unspecified; H54.40 Blindness, one eye, unspecified eye; Z99.2 Dependence on renal dialysis; Z90.710 Acquired absence of both cervix and uterus; Z98.49 Cataract extraction status, unspecified eye; Z79.899 Other long term (current) drug therapy; Z98.51 Tubal ligation status; Z82.49 Family history of ischemic heart disease and other diseases of the circulatory system; Z84.1 Family history of disorders of kidney and ureter
CPT/HCPCS: 0240U; 36415; 36416; 71045; 80048; 80053; 80061; 83036; 83605; 83735; 83880; 84100; 84484; 85025; 93005; 96374; J0360; J1644; J1815; Q5105

== ENCOUNTER 2021-01-18 23:19 | Emergency (ER) | payer BC, MEDICARE ==
[2021-01-19 00:52] LABS: #Eosinphils 0.2 thou/uL (0.0-0.7); #Lymphocytes 1.1 thou/uL (1.20-3.40); #Monocytes 0.8 thou/uL (0.11-0.59); #Neutrophils 5.7 thou/uL (1.40-6.50); %Basophils 0.4 % (0.0-1.0); %Eosinophils 2.1 % (0.0-10.0); %Lymphocytes 14.4 % (21.0-51.0); %Monocytes 9.7 % (0.0-10.0); %Neutrophils 73.4 % (42.0-75.0); Mean Corpuscular HGB CONC 32.4 g/dL (32.0-36.0); Mean Corpuscular Hemoglobin 31.5 pg (27.0-31.0); Mean Corpuscular Volume 97.5 fL (78.0-98.0); Mean Platelet Volume 9.4 fL (7.4-10.4); Platelet Count 166 thou/uL (130-400); RBC Distribution Width 18.8 % (11.5-14.5); Red Blood Cell (RBC) Count 2.87 mill/uL (4.20-5.40); White Blood Cell (WBC) Count 7.7 thou/uL (4.8-10.8)
[2021-01-19 01:07] LABS: BUN (Urea Nitrogen) 21 mg/dL (9.8-20.1)
[2021-01-19 01:08] LABS: ALT (SGPT) 27 U/L (8-55); AST (SGOT) 33 U/L (5-34); Albumin 3.3 g/dL (3.5-5.0); Alkaline Phosphatase 232 U/L (40-110); Bilirubin, Total 0.8 mg/dL (0.2-1.2); Calc. Creatinine Clearance 0 mL/min (70-130); Globulin 3.5 g/dL (2.4-3.5); Glucose 179 mg/dL (70-105); Protein, Total 6.8 g/dL (6.0-8.3)
[2021-01-19 01:17] LABS: Anion Gap 25 mmol/L (10-20); Carbon Dioxide 39 mmol/L (22-29); Chloride 84 mmol/L (98-107); Potassium 3.5 mmol/L (3.5-5.1); Sodium 144 mmol/L (136-145)
[2021-01-19] MEDS ORDERED: hydrALAZINE 20 MG/ML VIAL ONE ×2 (02:03→03:50)
[2021-01-19] MEDS ORDERED: Acetaminophen 500 MG TAB ONE (02:03)
== END 2021-01-19 04:46 | disposition home or self-care (01) ==
LOC: ERS 23:19
DX: I12.0 Hypertensive chronic kidney disease with stage 5 chronic kidney disease or end stage renal disease (principal); N18.6 End stage renal disease; R51.9 Headache, unspecified; E78.5 Hyperlipidemia, unspecified; E78.00 Pure hypercholesterolemia, unspecified; F17.210 Nicotine dependence, cigarettes, uncomplicated; Z79.4 Long term (current) use of insulin; Z79.899 Other long term (current) drug therapy
CPT/HCPCS: 36415; 70450; 71045; 80053; 85025; 93005; 94760; 96374; 96376; J0360

== ENCOUNTER 2021-01-31 20:21 | Inpatient (IN) | payer BC, MEDICARE ==
[2021-02-02 11:13] VITALS: BMI 29.3
[2021-02-03 11:57] VITALS: BP 150/80; TEMP 97.9
== END 2021-02-03 17:32 | disposition home or self-care (01) | DRG 640 ==
LOC: ERS 20:21 → 2NO 22:45 → CCU 02-01 04:11 → OBSVTOIN 02-01 11:03 → T4-A 02-02 08:05
PROVIDERS: ADMIT Student in an Organized Health Care Education/Training Program; ATTEND Internal Medicine
PROC: 5A1D70Z Performance of Urinary Filtration, Intermittent, Less than 6 Hours Per Day (ICD-10-PCS; principal; 2021-02-01)
DX: E87.6 Hypokalemia (principal); J96.01 Acute respiratory failure with hypoxia; N18.6 End stage renal disease; N25.81 Secondary hyperparathyroidism of renal origin; G93.40 Encephalopathy, unspecified; E87.3 Alkalosis; Z20.822 Contact with and (suspected) exposure to COVID-19; E78.5 Hyperlipidemia, unspecified; E11.22 Type 2 diabetes mellitus with diabetic chronic kidney disease; I25.10 Atherosclerotic heart disease of native coronary artery without angina pectoris; E87.5 Hyperkalemia; F32.9 Major depressive disorder, single episode, unspecified; E66.9 Obesity, unspecified; M54.2 Cervicalgia; E87.2 Acidosis; I10 Essential (primary) hypertension; E78.00 Pure hypercholesterolemia, unspecified; F17.210 Nicotine dependence, cigarettes, uncomplicated; D63.1 Anemia in chronic kidney disease; Z99.2 Dependence on renal dialysis; Z79.899 Other long term (current) drug therapy; Z79.51 Long term (current) use of inhaled steroids; Z90.710 Acquired absence of both cervix and uterus; Z91.19 Patient's noncompliance with other medical treatment and regimen; Z79.4 Long term (current) use of insulin; Z91.15 Patient's noncompliance with renal dialysis; Z68.29 Body mass index [BMI] 29.0-29.9, adult
CPT/HCPCS: 36415; 36416; 36600; 70450; 71045; 72125; 80048; 80053; 80202; 82805; 83605; 83735; 84145; 85025; 87040; 87340; 90935; 93005; 94640; 96374; 96375; 96376; G0257; G0378; J0360; J1610; J1644; J1815; J2543; J3370; J3480; J3490; J7620; Q5105; U0002; U0005

== ENCOUNTER 2021-02-27 00:28 | Emergency (ER) | payer MEDICARE ==
[2021-02-27] MEDS ORDERED: HYDROcodone/Acetaminophen 5/325 mg Tablet ONE (03:10)
== END 2021-02-27 04:27 | disposition home or self-care (01) ==
LOC: ERS 00:28
DX: S92.412A Displaced fracture of proximal phalanx of left great toe, initial encounter for closed fracture (principal); S80.812A Abrasion, left lower leg, initial encounter; E78.5 Hyperlipidemia, unspecified; I12.0 Hypertensive chronic kidney disease with stage 5 chronic kidney disease or end stage renal disease; N18.6 End stage renal disease; Z99.2 Dependence on renal dialysis; F17.210 Nicotine dependence, cigarettes, uncomplicated; W19.XXXA Unspecified fall, initial encounter

== ENCOUNTER 2021-03-08 19:03 | Inpatient (IN) | payer MEDICARE ==
[2021-03-08 21:25] LABS: Hemoglobin 9.2 g/dL (12.0-16.0); Mean Corpuscular HGB CONC 29.8 g/dL (32.0-36.0); Mean Corpuscular Hemoglobin 27.2 pg (27.0-31.0); Mean Corpuscular Volume 91.1 fL (78.0-98.0); Mean Platelet Volume 8.8 fL (7.4-10.4); Platelet Count 246 thou/uL (130-400); RBC Distribution Width 16.5 % (11.5-14.5); Red Blood Cell (RBC) Count 3.39 mill/uL (4.20-5.40); White Blood Cell (WBC) Count 28.4 thou/uL (4.8-10.8)
[2021-03-08 21:42] LABS: ALT (SGPT) 17 U/L (8-55); AST (SGOT) 26 U/L (5-34); Alkaline Phosphatase 202 U/L (40-110); BUN (Urea Nitrogen) 40 mg/dL (9.8-20.1); Bilirubin, Total 0.7 mg/dL (0.2-1.2); Calc. Creatinine Clearance 0 mL/min (70-130); Calcium 7.9 mg/dL (7.8-10.44); Globulin 3.6 g/dL (2.4-3.5); Lipase Less than 4 U/L (8-78); Protein, Total 6.6 g/dL (6.0-8.3)
[2021-03-08 21:48] LABS: Band 9 % (5-11); Hypochromia SLIGHT = 6-15 cells (100X) (0-5/hpf); Lymphocytes 1 % (21-51); MDiff Complete? YES; Monocytes 21 % (0-10); Neutrophil 69 % (42-75); Platelet Morphology Comment Appears Adequate
[2021-03-08 21:52] LABS: Anion Gap 24 mmol/L (10-20); Sodium 144 mmol/L (136-145)
[2021-03-08] MEDS ORDERED: Acetaminophen 325 MG TAB ONE (21:58)
[2021-03-08] MEDS ORDERED: Vancomycin HCl 1.25 GM in Sodium Chloride 0.9% 250 ML 250 ML IVPB SCH (22:00)
[2021-03-08] MEDS ORDERED: Piperacillin/Tazobactam 3.375 GM in Sodium Chloride 0.9% 100 ML IVPB SCH (22:00)
[2021-03-08 22:27] LABS: Carbon Dioxide Greater than 37 mmol/L (22-29); Chloride 72 mmol/L (98-107); Glucose 46 mg/dL (70-105); Potassium 2.5 mmol/L (3.5-5.1)
[2021-03-08] MEDS ORDERED: Dextrose 50% Abboject 50 ML SYRINGE ONE (22:27)
[2021-03-08 22:31] LABS: SARS-CoV-2 NAA Rapid Test Not Detected (NotDetected)
[2021-03-08 23:11] LABS: CKMB 2.5 ng/mL (0-6.6)
[2021-03-08] MEDS ORDERED: Dextrose 5% in Water 1,000 ML IV PRN (23:51)
[2021-03-08] MEDS ORDERED: HumaLOG 300 UNITS/3 ML VIAL SC PRN (23:51)
[2021-03-08] MEDS ORDERED: Heparin 5,000 UNITS/ML VIAL SC SCH (23:59)
[2021-03-09] MEDS ORDERED: Potassium Chloride 40 MEQ in Sodium Chloride 0.9% 250 ML 250 ML IVPB SCH (00:30)
[2021-03-09 00:44] LABS: Lactic Acid 2.5 mmol/L (0.5-2.2)
[2021-03-09] MEDS ORDERED: Dextrose 50% Abboject 50 ML SYRINGE ONE ×2 (00:44→05:01)
[2021-03-09] MEDS: Dextrose 50% Abboject 50 ML SYRINGE SLOW IVP PRN ×2 (00:45→04:50)
[2021-03-09 00:47] LABS: Magnesium 1.7 mg/dL (1.6-2.6); Phosphorus 4.7 mg/dL (2.3-4.7)
[2021-03-09 01:02] LABS: Critical Call Chem Troponin I RESULT DECREASING; Troponin I 3.303 ng/mL (< 0.028)
[2021-03-09 04:49] LABS: ALT (SGPT) 14 U/L (8-55); AST (SGOT) 27 U/L (5-34); Albumin 2.9 g/dL (3.5-5.0); Alkaline Phosphatase 204 U/L (40-110); BUN (Urea Nitrogen) 44 mg/dL (9.8-20.1); Calc. Creatinine Clearance 0 mL/min (70-130); Calcium 7.3 mg/dL (7.8-10.44); Globulin 3.1 g/dL (2.4-3.5)
[2021-03-09 04:53] LABS: Band 10 % (5-11); Chloride 72 mmol/L (98-107); Glucose 49 mg/dL (70-105); Hemoglobin 10.7 g/dL (12.0-16.0); Hypochromia SLIGHT = 6-15 cells (100X) (0-5/hpf); Lymphocytes 7 % (21-51); MDiff Complete? YES; Mean Corpuscular HGB CONC 31.3 g/dL (32.0-36.0); Mean Corpuscular Hemoglobin 28.4 pg (27.0-31.0); Mean Corpuscular Volume 90.8 fL (78.0-98.0); Mean Platelet Volume 9.2 fL (7.4-10.4); Monocytes 7 % (0-10); Neutrophil 76 % (42-75); Platelet Count 248 thou/uL (130-400); Platelet Morphology Comment Appears Adequate; RBC Distribution Width 16.5 % (11.5-14.5); Red Blood Cell (RBC) Count 3.77 mill/uL (4.20-5.40); White Blood Cell (WBC) Count 30.4 thou/uL (4.8-10.8)
[2021-03-09 04:59] LABS: Anion Gap 27 mmol/L (10-20); Potassium 3.1 mmol/L (3.5-5.1); Sodium 142 mmol/L (136-145)
[2021-03-09 05:03] LABS: Carbon Dioxide 46 mmol/L (22-29); Troponin I 4.538 ng/mL (< 0.028)
[2021-03-09] MEDS ORDERED: metroNIDAZOLE 500 MG/100 ML BAG ONE (05:05)
[2021-03-09] MEDS: metroNIDAZOLE 500 MG in Premix Bag 1 BAG IVPB SCH ×3 (05:19→18:47)
[2021-03-09 05:42] LABS: Actual Bicarbonate (HCO3a) 53.6 mEq/L (22-28); Analyzer IN Cardio ER; Base Excess (BEa) 27.5 mEq/L (-2.0 to +3.0); Calcium, Ionized (arterial) 0.77 mmol/L (1.12-1.30); Carboxyhemoglobin (COHb) 0.9 gm% (0.0-3.0); Hemoglobin (Hb) 10.4 g/dL (12.0-16.0); O2 Tension (PaO2), arterial 94.2 mmHg (80.0-100.0); Potassium - ABG Lab 2.77 mmol/L (3.70-5.30)
[2021-03-09 05:45] LABS: pH, Arterial 7.55 (7.35-7.45)
[2021-03-09 05:46] LABS: ALV-art Gradient 84.105 mmHg (0-20); CO2 Tension 62.7 mmHg (35.0-45.0)
[2021-03-09 07:41] LABS: Critical Call Chem Troponin I RESULT DECREASING; Troponin I 3.523 ng/mL (< 0.028)
[2021-03-09 08:10] VITALS: BMI 32.4
[2021-03-09] MEDS ORDERED: Dextrose 10% in Water 1,000 ML IV SCH (08:30)
[2021-03-09] MEDS: Heparin 5,000 UNITS/ML VIAL SC SCH ×3 (09:16→20:39)
[2021-03-09 17:39] LABS: Anion Gap 20 mmol/L (10-20); BUN (Urea Nitrogen) 17 mg/dL (9.8-20.1); Calc. Creatinine Clearance 23 mL/min (70-130); Calcium 7.5 mg/dL (7.8-10.44); Carbon Dioxide 30 mmol/L (22-29); Chloride 93 mmol/L (98-107); Glucose 109 mg/dL (70-105); Magnesium 1.9 mg/dL (1.6-2.6); Phosphorus 3.6 mg/dL (2.3-4.7); Potassium 4.5 mmol/L (3.5-5.1); Sodium 138 mmol/L (136-145)
[2021-03-09] MEDS ORDERED: Ondansetron PF 4 MG/2 ML Vial IVP PRN (22:41)
[2021-03-09] MEDS ORDERED: Calcium Carbonate 500 MG ChewTAB PO PRN (22:41)
[2021-03-09] MEDS ORDERED: Ondansetron PF 4 MG/2 ML Vial IVP SCH (22:45)
[2021-03-10] MEDS: metroNIDAZOLE 500 MG in Premix Bag 1 BAG IVPB SCH ×3 (02:30→17:43)
[2021-03-10] MEDS ORDERED: Albuterol 200 PUFF (6.7GM INHALER) INH PRN (06:13)
[2021-03-10 06:26] LABS: Band 44 % (5-11); Hemoglobin 10.4 g/dL (12.0-16.0); Lymphocytes 3 % (21-51); MDiff Complete? YES; Mean Corpuscular HGB CONC 30.5 g/dL (32.0-36.0); Mean Corpuscular Volume 91.8 fL (78.0-98.0); Mean Platelet Volume 9.2 fL (7.4-10.4); Metamyelocyte 4 % (0-0); Monocytes 4 % (0-10); Neutrophil 45 % (42-75); Platelet Count 216 thou/uL (130-400); Platelet Morphology Comment Appears Adequate; RBC Distribution Width 16.5 % (11.5-14.5); Red Blood Cell (RBC) Count 3.72 mill/uL (4.20-5.40); White Blood Cell (WBC) Count 23.7 thou/uL (4.8-10.8)
[2021-03-10 06:31] LABS: BUN (Urea Nitrogen) 27 mg/dL (9.8-20.1); Calc. Creatinine Clearance 19 mL/min (70-130); Calcium 7.3 mg/dL (7.8-10.44); Glucose 148 mg/dL (70-105); Phosphorus 4.3 mg/dL (2.3-4.7)
[2021-03-10 06:40] LABS: Anion Gap 19 mmol/L (10-20); Carbon Dioxide 36 mmol/L (22-29); Chloride 87 mmol/L (98-107); Lactic Acid 2.4 mmol/L (0.5-2.2); Potassium 4.2 mmol/L (3.5-5.1); Sodium 138 mmol/L (136-145)
[2021-03-10] MEDS: Aspirin 81 mg Enteric Coated Tablet PO SCH (09:24)
[2021-03-10] MEDS: Heparin 5,000 UNITS/ML VIAL SC SCH ×4 (09:25→20:06)
[2021-03-10] MEDS: Escitalopram Oxalate 10 mg Tablet PO SCH (09:25)
[2021-03-10] MEDS: Carvedilol 6.25 MG TAB PO SCH ×2 (09:26→20:07)
[2021-03-10] MEDS: cloNIDine 0.1 MG TAB PO SCH (09:26)
[2021-03-10] MEDS: Amlodipine 10 MG TAB PO SCH (09:26)
[2021-03-10] MEDS: Dicyclomine 20 MG TAB PO SCH ×4 (10:22→20:07)
[2021-03-10] MEDS: Vancomycin HCl 25 MG/ML Oral PO SCH ×3 (10:23→20:07)
[2021-03-10] MEDS ORDERED: Morphine 2 MG/ML VIAL SLOW IVP PRN (14:05)
[2021-03-10] MEDS ORDERED: hydrALAZINE 20 MG/ML VIAL SLOW IVP PRN (14:05)
[2021-03-10] MEDS: Acetaminophen 500 MG TAB PO PRN (15:20)
[2021-03-10] MEDS: Atorvastatin Calcium 10 MG TAB PO SCH (20:07)
[2021-03-10] MEDS ORDERED: Melatonin 3 MG TAB PO PRN (21:23)
[2021-03-11] MEDS: metroNIDAZOLE 500 MG in Premix Bag 1 BAG IVPB SCH ×4 (02:44→21:29)
[2021-03-11] MEDS: Vancomycin HCl 25 MG/ML Oral PO SCH ×5 (02:44→21:28)
[2021-03-11 08:18] LABS: Anion Gap 19 mmol/L (10-20); BUN (Urea Nitrogen) 37 mg/dL (9.8-20.1); Calc. Creatinine Clearance 15 mL/min (70-130); Carbon Dioxide 37 mmol/L (22-29); Chloride 84 mmol/L (98-107); Glucose 153 mg/dL (70-105); Potassium 4.6 mmol/L (3.5-5.1); Sodium 135 mmol/L (136-145)
[2021-03-11 08:19] LABS: Calcium 7.7 mg/dL (7.8-10.44)
[2021-03-11] MEDS: Heparin 5,000 UNITS/ML VIAL SC SCH ×3 (10:32→21:26)
[2021-03-11] MEDS: Dicyclomine 20 MG TAB PO SCH (10:32)
[2021-03-11] MEDS: Escitalopram Oxalate 10 mg Tablet PO SCH (15:25)
[2021-03-11] MEDS: Aspirin 81 mg Enteric Coated Tablet PO SCH (15:25)
[2021-03-11] MEDS: Carvedilol 6.25 MG TAB PO SCH ×2 (15:26→21:29)
[2021-03-11] MEDS: Amlodipine 10 MG TAB PO SCH (15:26)
[2021-03-11] MEDS: cloNIDine 0.1 MG TAB PO SCH (15:27)
[2021-03-11] MEDS: Atorvastatin Calcium 10 MG TAB PO SCH (21:29)
[2021-03-11] MEDS: Acetaminophen 500 MG TAB PO PRN (21:50)
[2021-03-12 01:19] LABS: Critical Call Chem Troponin I RESULT DECREASING; Troponin I 1.619 ng/mL (< 0.028)
[2021-03-12] MEDS: Vancomycin HCl 25 MG/ML Oral PO SCH ×4 (03:50→21:54)
[2021-03-12] MEDS: metroNIDAZOLE 500 MG in Premix Bag 1 BAG IVPB SCH ×3 (03:50→21:55)
[2021-03-12] MEDS ORDERED: diphenhydrAMINE 50 MG/ML VIAL IVP SCH (04:45)
[2021-03-12 07:38] LABS: Anion Gap 19 mmol/L (10-20); BUN (Urea Nitrogen) 22 mg/dL (9.8-20.1); Calc. Creatinine Clearance 25 mL/min (70-130); Calcium 7.9 mg/dL (7.8-10.44); Carbon Dioxide 30 mmol/L (22-29); Chloride 94 mmol/L (98-107); Glucose 107 mg/dL (70-105); Potassium 3.9 mmol/L (3.5-5.1); Sodium 139 mmol/L (136-145)
[2021-03-12 08:12] LABS: CKMB 18.6 ng/mL (0-6.6)
[2021-03-12] MEDS: Escitalopram Oxalate 10 mg Tablet PO SCH (09:45)
[2021-03-12] MEDS: Aspirin 81 mg Enteric Coated Tablet PO SCH (09:46)
[2021-03-12] MEDS: Heparin 5,000 UNITS/ML VIAL SC SCH ×3 (09:46→22:08)
[2021-03-12] MEDS: cloNIDine 0.1 MG TAB PO SCH (11:18)
[2021-03-12] MEDS: Amlodipine 10 MG TAB PO SCH (11:18)
[2021-03-12] MEDS ORDERED: Melatonin 3 MG TAB PO SCH (21:00)
[2021-03-12] MEDS: Atorvastatin Calcium 10 MG TAB PO SCH (21:53)
[2021-03-13] MEDS: Vancomycin HCl 25 MG/ML Oral PO SCH ×3 (03:52→14:35)
[2021-03-13 04:46] VITALS: TEMP 97.4
[2021-03-13] MEDS: metroNIDAZOLE 500 MG in Premix Bag 1 BAG IVPB SCH ×2 (06:00→14:25)
[2021-03-13 07:47] LABS: Anion Gap 17 mmol/L (10-20); BUN (Urea Nitrogen) 36 mg/dL (9.8-20.1); Calc. Creatinine Clearance 21 mL/min (70-130); Calcium 7.8 mg/dL (7.8-10.44); Carbon Dioxide 31 mmol/L (22-29); Chloride 93 mmol/L (98-107); Glucose 135 mg/dL (70-105); Potassium 4.1 mmol/L (3.5-5.1); Sodium 137 mmol/L (136-145)
[2021-03-13] MEDS ORDERED: Lactated Ringer's 500 ML IV SCH (09:00)
[2021-03-13] MEDS: Aspirin 81 mg Enteric Coated Tablet PO SCH (09:15)
[2021-03-13] MEDS: Escitalopram Oxalate 10 mg Tablet PO SCH (09:15)
[2021-03-13] MEDS: Heparin 5,000 UNITS/ML VIAL SC SCH ×2 (09:15→14:25)
[2021-03-13] MEDS: Amlodipine 10 MG TAB PO SCH (09:32)
[2021-03-13] MEDS: cloNIDine 0.1 MG TAB PO SCH (09:32)
[2021-03-13] MEDS ORDERED: Sodium Bicarb 50 MEQ/50 ML Abboject 8.4% SYRINGE ONE (15:01)
[2021-03-13] MEDS ORDERED: EPINEPHrine 1 MG/10 ML Abboject SYRINGE ONE (15:01)
[2021-03-13] MEDS ORDERED: Amiodarone 450 MG, Admixture Fee 1 EACH in Dextrose 5% in Water 250 ML IVPB SCH (15:15)
[2021-03-13 15:28] LABS: Hemoglobin 9.5 g/dL (12.0-16.0)
[2021-03-13] MEDS ORDERED: AMIODARONE IVPB SCH (15:30)
[2021-03-13] MEDS ORDERED: WATER IVPB SCH (15:30)
[2021-03-13] MEDS ORDERED: ADMIXTURE FEE IVPB SCH (15:30)
[2021-03-13] MEDS ORDERED: DEXTROSE IVPB SCH (15:30)
[2021-03-13] MEDS ORDERED: Propofol 1,000 MG/100 ML VIAL IV ONE (15:34)
[2021-03-13] MEDS ORDERED: Electrolyte Replacement Protocol 1 EACH IVPB ONE (15:47)
[2021-03-13] MEDS ORDERED: Pantoprazole 80 MG in Sodium Chloride 0.9% 100 ML IVPB SCH (15:50)
[2021-03-13] MEDS ORDERED: Ventilator Sedation Protocol 1 EACH FS SCH (16:00)
[2021-03-13 16:20] VITALS: BP 102/61
[2021-03-13] MEDS ORDERED: Fentanyl BOLUS 250 ML IVPB PRN (16:45)
[2021-03-13] MEDS ORDERED: Morphine 2 MG/ML VIAL SLOW IVP PRN (16:45)
[2021-03-13] MEDS ORDERED: DISCONTINUE PREVIOUS NARCOTIC PAIN MEDICATIONS AND BENZODIAZEPINES FS SCH (16:45)
[2021-03-13] MEDS ORDERED: Fentanyl CADD 100 ML IV SCH (16:45)
[2021-03-13] MEDS ORDERED: Lorazepam 2 MG/ML VIAL SLOW IVP PRN (16:45)
[2021-03-13] MEDS ORDERED: Propofol BOLUS 1,000 MG/100 ML VIAL IV PRN (16:45)
[2021-03-13] MEDS ORDERED: Propofol 1,000 MG/100 ML VIAL IV PRN (16:45)
[2021-03-14 15:14] LABS: Norovirus GI Negative (Negative); Norovirus GII Negative (Negative)
== END 2021-03-13 17:22 | disposition expired | DRG 871 ==
LOC: ERS 19:03 → IMCU/EMU 23:30 → ERHOLD 23:39 → IMCU/EMU 03-09 07:04 → 2NO 03-10 17:16 → SURG A 03-11 18:59 → CCU 03-13 15:28
PROVIDERS: ADMIT Internal Medicine; ATTEND Internal Medicine
PROC: 06HY33Z Insertion of Infusion Device into Lower Vein, Percutaneous Approach (ICD-10-PCS; 2021-03-08)
PROC: 8E0ZXY6 Isolation (ICD-10-PCS; 2021-03-08)
PROC: 06HY33Z Insertion of Infusion Device into Lower Vein, Percutaneous Approach (ICD-10-PCS; 2021-03-09)
PROC: 5A1935Z Respiratory Ventilation, Less than 24 Consecutive Hours (ICD-10-PCS; principal; 2021-03-13)
PROC: 5A1D70Z Performance of Urinary Filtration, Intermittent, Less than 6 Hours Per Day (ICD-10-PCS; 2021-03-13)
PROC: 5A2204Z Restoration of Cardiac Rhythm, Single (ICD-10-PCS; 2021-03-13)
PROC: 5A12012 Performance of Cardiac Output, Single, Manual (ICD-10-PCS; 2021-03-13)
PROC: 0BH17EZ Insertion of Endotracheal Airway into Trachea, Via Natural or Artificial Opening (ICD-10-PCS; 2021-03-13)
PROC: 3E033XZ Introduction of Vasopressor into Peripheral Vein, Percutaneous Approach (ICD-10-PCS; 2021-03-13)
PROC: 30233N1 Transfusion of Nonautologous Red Blood Cells into Peripheral Vein, Percutaneous Approach (ICD-10-PCS; 2021-03-13)
DX: A41.89 Other specified sepsis (principal); N18.6 End stage renal disease; G92 Toxic encephalopathy; I21.4 Non-ST elevation (NSTEMI) myocardial infarction; F05 Delirium due to known physiological condition; F33.9 Major depressive disorder, recurrent, unspecified; E87.3 Alkalosis; A04.72 Enterocolitis due to Clostridium difficile, not specified as recurrent; N17.9 Acute kidney failure, unspecified; N25.81 Secondary hyperparathyroidism of renal origin; I47.2 Ventricular tachycardia; K92.0 Hematemesis; Z20.822 Contact with and (suspected) exposure to COVID-19; Z66 Do not resuscitate; E87.6 Hypokalemia; D63.1 Anemia in chronic kidney disease; E11.649 Type 2 diabetes mellitus with hypoglycemia without coma; E78.5 Hyperlipidemia, unspecified; I95.9 Hypotension, unspecified; R00.1 Bradycardia, unspecified; I46.2 Cardiac arrest due to underlying cardiac condition; E11.22 Type 2 diabetes mellitus with diabetic chronic kidney disease; F17.210 Nicotine dependence, cigarettes, uncomplicated; E87.8 Other disorders of electrolyte and fluid balance, not elsewhere classified; R79.89 Other specified abnormal findings of blood chemistry; F41.9 Anxiety disorder, unspecified; I10 Essential (primary) hypertension; Z96.41 Presence of insulin pump (external) (internal); I25.10 Atherosclerotic heart disease of native coronary artery without angina pectoris; I08.3 Combined rheumatic disorders of mitral, aortic and tricuspid valves; Z53.20 Procedure and treatment not carried out because of patient's decision for unspecified reasons; Z28.21 Immunization not carried out because of patient refusal; Z99.2 Dependence on renal dialysis; Z79.899 Other long term (current) drug therapy; Z90.710 Acquired absence of both cervix and uterus; Z79.4 Long term (current) use of insulin; Z78.1 Physical restraint status; H54.40 Blindness, one eye, unspecified eye; R65.20 Severe sepsis without septic shock
CPT/HCPCS: 36415; 36416; 36430; 36556; 71045; 74176; 74177; 80048; 80053; 82274; 82553; 82805; 83036; 83605; 83630; 83690; 83735; 83930; 84100; 84425; 84443; 84484; 85014; 85018; 85025; 86140; 86850; 86870; 86880; 86900; 86901; 86922; 87040; 87045; 87046; 87324; 87328; 87329; 87427; 87449; 87798; 90935; 93005; 93010; 93306; 94002; 96365; 96367; 96375; 99292; G0257; J0171; J0744; J1200; J1644; J2270; J2405; J2543; J3370; J3480; J3490; J7050; J7120; P9016; Q9967; U0002; U0005